=== PATIENT | male | born 1960 | race Caucasian/White ===

== ENCOUNTER 2016-04-20 18:24 | Inpatient (IN) | payer OTHER ==
[~2016-04-20] VITALS: Ht 180.3 cm; Wt 66.3 kg
[~2016-04-20 18:24] MED LIST: ADVAIR 250/501 DISK IH; Levaquin PO; NOHOMEMEDS; SPIRIVA1 INHALATI IH; Tessalon Perle PO; XARELTO15 MG PO; XARELTO20 MG PO
[2016-04-20 19:27] LABS: CHLORIDE 89 mEq/L (99-109); POTASSIUM 3.7 mEq/L (3.7-5.4); SODIUM 122 mEq/L (136-147)
[2016-04-20 19:29] LABS: GLUCOSE 89 mg/dL (70-99)
[2016-04-20 19:31] LABS: ANION GAP 19 MEQ/L (2-14)
[2016-04-20 19:33] LABS: GFR ESTIMATE (CALCULATED) 27 mL/min/
[2016-04-20 19:34] LABS: UREA NITROGEN (BUN) 23 mg/dL (9-23)
[2016-04-20 20:39] LABS: INFLUENZA A VIRAL ANTIGEN NEGATIVE; INFLUENZA B VIRAL ANTIGEN NEGATIVE
[2016-04-20 21:53] LABS: ADD MIUA? YES; BILIRUBIN NEGATIVE; BLOOD LARGE; COLOR DK YELLOW ((YELLOW)); GLUCOSE (STRIP) NEGATIVE; KETONES NEGATIVE; LEUKOCYTES LARGE; NITRITE NEGATIVE; PROTEIN (STRIP) >=300; SPECIFIC GRAVITY 1.015 (1.000-1.030); UROBILINOGEN 0.2 MG/DL (0.2-1.0)
[2016-04-20 22:00] LABS: HEMATOCRIT 31.2 % (38.0-50.0); MCH 31.4 PG (29.0-34.0); MCHC 35.6 G/DL (30.0-36.0); MCV 88.4 FL (86-99); MEAN PLAT.VOLUME 9.5 uM^3 (9.0-12.4); PLATELET COUNT 176 K/uL (156-360); RBC DIS.WIDTH-CV 13.7 % (11.8-14.6); RBC DIS.WIDTH-SD 42.7 % (39-53); RED BLOOD COUNT 3.53 M/uL (4.00-5.50); WHITE BLOOD COUNT 26.6 K/uL (4.1-10.2)
[2016-04-20] MEDS ORDERED: ADVIL,NUPRIN,M200 MG PO (22:30)
[2016-04-20 22:42] LABS: UCUL ADDED? YES; WHITE BLOOD CELLS TNTC /HPF (0-5)
[2016-04-20 22:50] LABS: ABS NEUTROPHIL COUNT 20.18; ANISOCYTOSIS 1+; BURR CELLS 1+; EOSINOPHIL (%) 0.6 % (0-5); EOSINOPHIL COUNT 0.2 K/uL (0-0.3); IMMATURE GRANULOCYTE (%) 11.7 % (0.0-0.7); IMMATURE GRANULOCYTE COUNT 31.1 K/uL; LYMPHOCYTE COUNT 0.6 K/uL (1.0-2.8); MONOCYTE COUNT 0.5 K/uL (0-0.8); NEUTROPHIL (%) 83.3 % (45-76); NEUTROPHIL COUNT 22.1 K/uL (1.8-6.4); PLAT.SUFFICIENCY ADEQUATE
[2016-04-21] VITALS (24 sets, daily range): BP systolic 79–128; BP diastolic 52–80
[2016-04-21 03:08] LABS: METH RESISTANT S AUREUS PCR NEGATIVE (NEGATIVE)
[2016-04-21 03:19] LABS: PROBE CHECK PASS; SPECIMEN PROCESSING CONTROL PASS
[2016-04-21 06:52] LABS: ANION GAP 19 MEQ/L (2-14); CHLORIDE 97 MEQ/L (99-109); GFR ESTIMATE (CALCULATED) 28 mL/min/; GLUCOSE 70 mg/dL (70-99); POTASSIUM 4.1 MEQ/L (3.7-5.4); SAMPLE HEMOLYSIS CHECK 0; SAMPLE ICTERIC CHECK 0; SAMPLE LIPEMIA CHECK 0; SODIUM 126 MEQ/L (136-147); UREA NITROGEN (BUN) 26 mg/dL (9-23)
[2016-04-21 13:20] LABS: ANION GAP 11 MEQ/L (2-14); CHLORIDE 101 MEQ/L (99-109); GFR ESTIMATE (CALCULATED) 30 mL/min/; GLUCOSE 64 mg/dL (70-99); SAMPLE HEMOLYSIS CHECK 0; SAMPLE ICTERIC CHECK 0; SAMPLE LIPEMIA CHECK 0; SODIUM 125 MEQ/L (136-147); UREA NITROGEN (BUN) 30 mg/dL (9-23)
[2016-04-21 13:33] LABS: POTASSIUM 5.4 MEQ/L (3.7-5.4)
[2016-04-21 20:10] LABS: GLUCOSE 67 mg/dL (70-99)
[2016-04-21 20:11] LABS: GFR ESTIMATE (CALCULATED) 30 mL/min/; UREA NITROGEN (BUN) 32 mg/dL (9-23)
[2016-04-21 20:12] LABS: CHLORIDE 104 MEQ/L (99-109); POTASSIUM 5.3 MEQ/L (3.7-5.4); SODIUM 131 MEQ/L (136-147)
[2016-04-21 20:13] LABS: ADD MIUA? YES; BILIRUBIN SMALL; BLOOD LARGE; COLOR DK YELLOW ((YELLOW)); GLUCOSE (STRIP) NEGATIVE; KETONES NEGATIVE; LEUKOCYTES LARGE; NITRITE NEGATIVE; PH, URINE 6.5 (5-8); PROTEIN (STRIP) 100; SPECIFIC GRAVITY 1.011 (1.000-1.030)
[2016-04-21 20:13] LABS: ANION GAP ND MEQ/L (2-14)
[2016-04-21 20:30] LABS: RED BLOOD CELLS TNTC /HPF (0-5)
[2016-04-21 20:31] LABS: AMORPHOUS URATES CRYSTALS 4+; BACTERIA 3+; CASTS NONE SEEN /LPF; CRYSTALS PRESENT; EPITHELIAL CELLS RARE; MUCUS NONE SEEN; UCUL ADDED? YES; WHITE BLOOD CELLS TNTC /HPF (0-5)
[2016-04-21 21:07] LABS: UR CREATININE CONCENTRATION 62.8 MG/DL
[2016-04-21 21:10] LABS: BASE EXCESS -5.9 mEq/L (-3 to +3); BICARBONATE 17.3 mEq/L (22-26); CARBOXY HGB 1.8 % (0-5); COMMENTS - BLOOD GASES A+C+; FI02 21 %; METHEMOGLOBIN 1.9 % (0-1.5); PCO2 26 mm Hg (35-45); PO2 65 mm Hg (80-100); SITE RR; pH 7.43 (7.35-7.45)
[2016-04-21 23:21] LABS: POTASSIUM 4.3 mEq/L (3.7-5.4); SODIUM 132 mEq/L (136-147)
[2016-04-21 23:22] LABS: GLUCOSE 49 mg/dL (70-99)
[2016-04-21 23:24] LABS: ANION GAP 14 MEQ/L (2-14); CHLORIDE 105 mEq/L (99-109)
[2016-04-21 23:26] LABS: GFR ESTIMATE (CALCULATED) 31 mL/min/
[2016-04-21 23:27] LABS: UREA NITROGEN (BUN) 35 mg/dL (9-23)
[2016-04-22] VITALS (10 sets, daily range): BP systolic 97–141; BP diastolic 59–82
[2016-04-22 05:46] LABS: HEMATOCRIT 28.1 % (38.0-50.0); MCH 30.9 PG (29.0-34.0); MCHC 35.2 G/DL (30.0-36.0); MCV 87.8 FL (86-99); RBC DIS.WIDTH-SD 45.2 % (39-53); WHITE BLOOD COUNT 19.4 K/uL (4.1-10.2)
[2016-04-22 06:21] LABS: ANION GAP 11 MEQ/L (2-14); CHLORIDE 105 MEQ/L (99-109); GFR ESTIMATE (CALCULATED) 31 mL/min/; GLUCOSE 68 mg/dL (70-99); MAGNESIUM 1.5 mg/dl (1.3-2.7); POTASSIUM 4.2 MEQ/L (3.7-5.4); SAMPLE HEMOLYSIS CHECK 0; SAMPLE ICTERIC CHECK 0; SAMPLE LIPEMIA CHECK 0; SODIUM 132 MEQ/L (136-147); UREA NITROGEN (BUN) 38 mg/dL (9-23)
[2016-04-22 06:45] LABS: EOSINOPHIL (%) 0.1 % (0-5); HEMATOLOGY COMMENT 1 SMEAR COMPATIBLE; IMMATURE GRANULOCYTE (%) 2.8 % (0.0-0.7); IMMATURE GRANULOCYTE COUNT 0.6 K/uL; LYMPHOCYTE COUNT 1.7 K/uL (1.0-2.8); MONOCYTE (%) 3.8 % (3-12); MONOCYTE COUNT 0.7 K/uL (0-0.8); NEUTROPHIL (%) 84.2 % (45-76); NEUTROPHIL COUNT 16.3 K/uL (1.8-6.4); PLAT.SUFFICIENCY DECREASED
[2016-04-22 06:52] LABS: PLATELET COUNT UNABLE TO REPORT K/uL (156-360)
[2016-04-23 00:10] VITALS: BP 125/72
[2016-04-23 04:10] VITALS: BP 107/74
[2016-04-23 06:04] LABS: HEMATOCRIT 27.5 % (38.0-50.0); MCHC 35.3 G/DL (30.0-36.0); MCV 87.9 FL (86-99); RBC DIS.WIDTH-CV 14.3 % (11.8-14.6); RBC DIS.WIDTH-SD 46.2 % (39-53); RED BLOOD COUNT 3.13 M/uL (4.00-5.50); WHITE BLOOD COUNT 14.9 K/uL (4.1-10.2)
[2016-04-23 06:32] LABS: ANION GAP 9 MEQ/L (2-14); CHLORIDE 106 MEQ/L (99-109); GFR ESTIMATE (CALCULATED) 39 mL/min/; POTASSIUM 4.1 MEQ/L (3.7-5.4); SAMPLE HEMOLYSIS CHECK 0; SAMPLE ICTERIC CHECK 0; SAMPLE LIPEMIA CHECK 0; SODIUM 133 MEQ/L (136-147); UREA NITROGEN (BUN) 34 mg/dL (9-23)
[2016-04-23 06:36] LABS: GLUCOSE 114 mg/dL (70-99); MAGNESIUM 2.1 mg/dl (1.3-2.7)
[2016-04-23 06:50] LABS: EOSINOPHIL (%) 0.9 % (0-5); EOSINOPHIL COUNT 0.1 K/uL (0-0.3); IMMATURE GRANULOCYTE (%) 0.7 % (0.0-0.7); IMMATURE GRANULOCYTE COUNT 0.1 K/uL; LYMPHOCYTE COUNT 1.7 K/uL (1.0-2.8); MONOCYTE COUNT 0.8 K/uL (0-0.8); NEUTROPHIL (%) 81.7 % (45-76); NEUTROPHIL COUNT 12.2 K/uL (1.8-6.4)
[2016-04-23 07:36] LABS: PLAT.SUFFICIENCY DECREASED; PLATELET COUNT UNABLE TO REPORT K/uL (156-360)
[2016-04-23 08:00] VITALS: BP 121/83
[2016-04-23 10:20] VITALS: BP 128/83
[2016-04-23 10:58] LABS: C DIFF TOXIN NEGATIVE (NEGATIVE)
[2016-04-23 11:07] LABS: PROBE CHECK PASS; SPECIMEN PROCESSING CONTROL PASS
[2016-04-23 12:00] VITALS: BP 123/79
[2016-04-23 20:00] VITALS: BP 130/82
[2016-04-24] VITALS (7 sets, daily range): BP systolic 127–160; BP diastolic 80–88
[2016-04-24 05:52] LABS: HEMATOCRIT 28.5 % (38.0-50.0); MCH 30.7 PG (29.0-34.0); MCHC 34.7 G/DL (30.0-36.0); MCV 88.2 FL (86-99); RBC DIS.WIDTH-CV 14.3 % (11.8-14.6); RBC DIS.WIDTH-SD 46.5 % (39-53); RED BLOOD COUNT 3.23 M/uL (4.00-5.50); WHITE BLOOD COUNT 12.4 K/uL (4.1-10.2)
[2016-04-24 06:07] LABS: CHLORIDE 103 MEQ/L (99-109); GFR ESTIMATE (CALCULATED) > 59 mL/min/; GLUCOSE 98 mg/dL (70-99); POTASSIUM 3.7 MEQ/L (3.7-5.4); SODIUM 135 MEQ/L (136-147); UREA NITROGEN (BUN) 23 mg/dL (9-23)
[2016-04-24 06:16] LABS: ANION GAP 12 MEQ/L (2-14); MAGNESIUM 1.8 mg/dl (1.3-2.7); SAMPLE HEMOLYSIS CHECK 0; SAMPLE ICTERIC CHECK 0; SAMPLE LIPEMIA CHECK 0
[2016-04-24 07:10] LABS: EOSINOPHIL (%) 1.2 % (0-5); EOSINOPHIL COUNT 0.2 K/uL (0-0.3); IMMATURE GRANULOCYTE (%) 1.1 % (0.0-0.7); IMMATURE GRANULOCYTE COUNT 0.1 K/uL; MONOCYTE (%) 13.1 % (3-12); MONOCYTE COUNT 1.6 K/uL (0-0.8); NEUTROPHIL (%) 67.9 % (45-76); NEUTROPHIL COUNT 8.4 K/uL (1.8-6.4)
[2016-04-24 07:17] LABS: MEAN PLAT.VOLUME 11.2 uM^3 (9.0-12.4); PLAT.SUFFICIENCY DECREASED; USER ID CL
[2016-04-24 07:43] LABS: PLATELET COUNT 47 K/uL (156-360)
[2016-04-25] VITALS: BP 150/82
[2016-04-25 06:00] LABS: HEMATOCRIT 31.5 % (38.0-50.0); MCH 30.3 PG (29.0-34.0); MCHC 34.3 G/DL (30.0-36.0); MCV 88.5 FL (86-99); RBC DIS.WIDTH-CV 14.6 % (11.8-14.6); RBC DIS.WIDTH-SD 47.4 % (39-53); RED BLOOD COUNT 3.56 M/uL (4.00-5.50); WHITE BLOOD COUNT 10.3 K/uL (4.1-10.2)
[2016-04-25 06:16] LABS: EOSINOPHIL (%) 1.3 % (0-5); EOSINOPHIL COUNT 0.1 K/uL (0-0.3); IMMATURE GRANULOCYTE (%) 4.4 % (0.0-0.7); IMMATURE GRANULOCYTE COUNT 0.5 K/uL; LYMPHOCYTE COUNT 1.9 K/uL (1.0-2.8); MEAN PLAT.VOLUME 11.2 uM^3 (9.0-12.4); MONOCYTE (%) 16.2 % (3-12); MONOCYTE COUNT 1.7 K/uL (0-0.8); NEUTROPHIL (%) 59.7 % (45-76); NEUTROPHIL COUNT 6.2 K/uL (1.8-6.4)
[2016-04-25 06:18] LABS: PLATELET COUNT 64 K/uL (156-360)
[2016-04-25 06:31] LABS: ANION GAP 11 MEQ/L (2-14); CHLORIDE 107 MEQ/L (99-109); GFR ESTIMATE (CALCULATED) > 59 mL/min/; GLUCOSE 76 mg/dL (70-99); MAGNESIUM 1.7 mg/dl (1.3-2.7); POTASSIUM 3.4 MEQ/L (3.7-5.4); SAMPLE HEMOLYSIS CHECK 0; SAMPLE ICTERIC CHECK 0; SAMPLE LIPEMIA CHECK 0; SODIUM 138 MEQ/L (136-147); UREA NITROGEN (BUN) 16 mg/dL (9-23)
[2016-04-25 08:00] VITALS: BP 144/79
[2016-04-25 08:15] LABS: HEMATOLOGY COMMENT 1 SMEAR COMPATIBLE
[2016-04-25 12:00] VITALS: BP 165/83
[2016-04-25 16:00] VITALS: BP 157/82
[2016-04-25 20:36] VITALS: BP 139/72
[2016-04-25 23:15] VITALS: BP 135/76
[2016-04-26 06:57] LABS: HEMATOCRIT 30.4 % (38.0-50.0); MCH 30.6 PG (29.0-34.0); MCHC 35.2 G/DL (30.0-36.0); MCV 86.9 FL (86-99); RBC DIS.WIDTH-CV 14.5 % (11.8-14.6); RBC DIS.WIDTH-SD 45.2 % (39-53); WHITE BLOOD COUNT 9.1 K/uL (4.1-10.2)
[2016-04-26 07:20] LABS: ANION GAP 6 MEQ/L (2-14); CHLORIDE 104 MEQ/L (99-109); GFR ESTIMATE (CALCULATED) > 59 mL/min/; MAGNESIUM 1.6 mg/dl (1.3-2.7); POTASSIUM 3.3 MEQ/L (3.7-5.4); SAMPLE HEMOLYSIS CHECK 0; SAMPLE ICTERIC CHECK 0; SAMPLE LIPEMIA CHECK 0; SODIUM 136 MEQ/L (136-147); UREA NITROGEN (BUN) 13 mg/dL (9-23)
[2016-04-26 07:22] LABS: GLUCOSE 96 mg/dL (70-99)
[2016-04-26 07:31] LABS: EOSINOPHIL (%) 1.4 % (0-5); EOSINOPHIL COUNT 0.1 K/uL (0-0.3); IMMATURE GRANULOCYTE (%) 3.8 % (0.0-0.7); IMMATURE GRANULOCYTE COUNT 0.3 K/uL; LYMPHOCYTE COUNT 1.8 K/uL (1.0-2.8); MEAN PLAT.VOLUME 10.9 uM^3 (9.0-12.4); MONOCYTE (%) 14.5 % (3-12); MONOCYTE COUNT 1.3 K/uL (0-0.8); NEUTROPHIL (%) 60.1 % (45-76); NEUTROPHIL COUNT 5.5 K/uL (1.8-6.4); PLATELET COUNT 100 K/uL (156-360)
[2016-04-26 08:00] VITALS: BP 130/80
[2016-04-26 08:01] LABS: HEMATOLOGY COMMENT 1 REV; USER ID NJR
[2016-04-26 18:49] VITALS: BP 173/75
[2016-04-26 22:49] VITALS: BP 130/60
[2016-04-27 06:57] LABS: EOSINOPHIL (%) 1.1 % (0-5); EOSINOPHIL COUNT 0.1 K/uL (0-0.3); HEMATOCRIT 30.4 % (38.0-50.0); IMMATURE GRANULOCYTE (%) 1.1 % (0.0-0.7); IMMATURE GRANULOCYTE COUNT 0.1 K/uL; LYMPHOCYTE COUNT 2.3 K/uL (1.0-2.8); MCH 29.5 PG (29.0-34.0); MCHC 34.2 G/DL (30.0-36.0); MCV 86.4 FL (86-99); MEAN PLAT.VOLUME 10.5 uM^3 (9.0-12.4); MONOCYTE (%) 11.3 % (3-12); MONOCYTE COUNT 0.9 K/uL (0-0.8); NEUTROPHIL (%) 57.9 % (45-76); NEUTROPHIL COUNT 4.7 K/uL (1.8-6.4); PLATELET COUNT 124 K/uL (156-360); RBC DIS.WIDTH-CV 14.8 % (11.8-14.6); RBC DIS.WIDTH-SD 45.8 % (39-53); RED BLOOD COUNT 3.52 M/uL (4.00-5.50); WHITE BLOOD COUNT 8.1 K/uL (4.1-10.2)
[2016-04-27 07:34] LABS: ANION GAP 7 MEQ/L (2-14); CHLORIDE 103 MEQ/L (99-109); GFR ESTIMATE (CALCULATED) > 59 mL/min/; GLUCOSE 100 mg/dL (70-99); MAGNESIUM 1.4 mg/dl (1.3-2.7); POTASSIUM 3.1 MEQ/L (3.7-5.4); SAMPLE HEMOLYSIS CHECK 0; SAMPLE ICTERIC CHECK 0; SAMPLE LIPEMIA CHECK 0; SODIUM 135 MEQ/L (136-147); UREA NITROGEN (BUN) 10 mg/dL (9-23)
[2016-04-27 08:12] VITALS: BP 123/62
[2016-04-27 22:44] VITALS: BP 113/69
[2016-04-28 06:35] LABS: EOSINOPHIL (%) 0 % (0-5); HEMATOCRIT 25.1 % (38.0-50.0); IMMATURE GRANULOCYTE (%) 0.3 % (0.0-0.7); LYMPHOCYTE COUNT 1.3 K/uL (1.0-2.8); MCH 30.4 PG (29.0-34.0); MCHC 35.1 G/DL (30.0-36.0); MCV 86.9 FL (86-99); MEAN PLAT.VOLUME 10.4 uM^3 (9.0-12.4); MONOCYTE (%) 5.4 % (3-12); MONOCYTE COUNT 0.5 K/uL (0-0.8); NEUTROPHIL (%) 79.6 % (45-76); PLATELET COUNT 142 K/uL (156-360); RBC DIS.WIDTH-CV 14.6 % (11.8-14.6); RBC DIS.WIDTH-SD 45.9 % (39-53); RED BLOOD COUNT 2.89 M/uL (4.00-5.50); WHITE BLOOD COUNT 8.8 K/uL (4.1-10.2)
[2016-04-28 07:46] VITALS: BP 116/64
[2016-04-28 08:03] LABS: ANION GAP 5 MEQ/L (2-14); CHLORIDE 105 MEQ/L (99-109); GFR ESTIMATE (CALCULATED) > 59 mL/min/; GLUCOSE 133 mg/dL (70-99); MAGNESIUM 1.5 mg/dl (1.3-2.7); SAMPLE HEMOLYSIS CHECK 0; SAMPLE ICTERIC CHECK 0; SAMPLE LIPEMIA CHECK 0; SODIUM 136 MEQ/L (136-147); UREA NITROGEN (BUN) 13 mg/dL (9-23)
[2016-04-28 08:04] LABS: POTASSIUM 4.4 MEQ/L (3.7-5.4)
[2016-04-28 15:26] VITALS: BP 126/66
[2016-04-28 22:36] VITALS: BP 116/60
[2016-04-29 05:51] LABS: EOSINOPHIL (%) 0.1 % (0-5); IMMATURE GRANULOCYTE (%) 0.4 % (0.0-0.7); LYMPHOCYTE COUNT 2.4 K/uL (1.0-2.8); MCH 30.4 PG (29.0-34.0); MCHC 34.3 G/DL (30.0-36.0); MCV 88.5 FL (86-99); MEAN PLAT.VOLUME 10.4 uM^3 (9.0-12.4); MONOCYTE (%) 7.5 % (3-12); MONOCYTE COUNT 0.7 K/uL (0-0.8); NEUTROPHIL (%) 65.6 % (45-76); PLATELET COUNT 181 K/uL (156-360); RBC DIS.WIDTH-CV 15.3 % (11.8-14.6); WHITE BLOOD COUNT 9.1 K/uL (4.1-10.2)
[2016-04-29 06:06] LABS: INTER. NORMALIZED RATIO 1.1; PROTHROMBIN TIME 11.4 (9.2-11.2); PTT 33.4 (25-32)
[2016-04-29 06:20] LABS: ANION GAP 6 MEQ/L (2-14); CHLORIDE 104 MEQ/L (99-109); GFR ESTIMATE (CALCULATED) > 59 mL/min/; MAGNESIUM 1.4 mg/dl (1.3-2.7); POTASSIUM 4.7 MEQ/L (3.7-5.4); SAMPLE HEMOLYSIS CHECK 0; SAMPLE ICTERIC CHECK 0; SAMPLE LIPEMIA CHECK 0; SODIUM 135 MEQ/L (136-147); UREA NITROGEN (BUN) 12 mg/dL (9-23)
[2016-04-29 06:23] LABS: GLUCOSE 75 mg/dL (70-99)
[2016-04-29 07:57] VITALS: BP 106/59
[2016-04-29 17:08] VITALS: BP 148/68
[2016-04-29 22:38] VITALS: BP 146/72
[2016-04-30 06:24] LABS: HEMATOCRIT 22.8 % (38.0-50.0); MCH 30.6 PG (29.0-34.0); MCHC 34.6 G/DL (30.0-36.0); MCV 88.4 FL (86-99); MEAN PLAT.VOLUME 10.1 uM^3 (9.0-12.4); PLATELET COUNT 216 K/uL (156-360); RBC DIS.WIDTH-CV 15.2 % (11.8-14.6); RBC DIS.WIDTH-SD 48.9 % (39-53); RED BLOOD COUNT 2.58 M/uL (4.00-5.50); WHITE BLOOD COUNT 9.2 K/uL (4.1-10.2)
[2016-04-30 06:35] LABS: EOSINOPHIL (%) 0.4 % (0-5); IMMATURE GRANULOCYTE (%) 0.2 % (0.0-0.7); LYMPHOCYTE COUNT 2.3 K/uL (1.0-2.8); MONOCYTE (%) 9.6 % (3-12); MONOCYTE COUNT 0.9 K/uL (0-0.8); NEUTROPHIL (%) 64.8 % (45-76); NEUTROPHIL COUNT 5.9 K/uL (1.8-6.4)
[2016-04-30 06:53] LABS: ANION GAP 5 MEQ/L (2-14); CHLORIDE 103 MEQ/L (99-109); GFR ESTIMATE (CALCULATED) > 59 mL/min/; GLUCOSE 79 mg/dL (70-99); MAGNESIUM 1.5 mg/dl (1.3-2.7); POTASSIUM 4.2 MEQ/L (3.7-5.4); PREALBUMIN 6.4 mg/dL (10-40); SAMPLE HEMOLYSIS CHECK 0; SAMPLE ICTERIC CHECK 0; SAMPLE LIPEMIA CHECK 0; SODIUM 133 MEQ/L (136-147); UREA NITROGEN (BUN) 10 mg/dL (9-23)
[2016-04-30 08:07] LABS: HEMATOLOGY COMMENT 1 SMEAR COMPATIBLE; USER ID LYM
[2016-04-30 08:42] VITALS: BP 120/88
[2016-04-30 17:37] VITALS: BP 134/72
[2016-04-30 21:00] VITALS: BP 115/74
[2016-04-30 22:13] VITALS: BP 113/58
[2016-05-01 06:16] LABS: EOSINOPHIL (%) 1.1 % (0-5); EOSINOPHIL COUNT 0.1 K/uL (0-0.3); HEMATOCRIT 23.7 % (38.0-50.0); IMMATURE GRANULOCYTE (%) 0.2 % (0.0-0.7); LYMPHOCYTE COUNT 2.4 K/uL (1.0-2.8); MCHC 33.8 G/DL (30.0-36.0); MCV 88.8 FL (86-99); MEAN PLAT.VOLUME 9.6 uM^3 (9.0-12.4); MONOCYTE (%) 8.3 % (3-12); MONOCYTE COUNT 0.7 K/uL (0-0.8); NEUTROPHIL (%) 61.6 % (45-76); NEUTROPHIL COUNT 5.1 K/uL (1.8-6.4); PLATELET COUNT 249 K/uL (156-360); RBC DIS.WIDTH-CV 15.1 % (11.8-14.6); RBC DIS.WIDTH-SD 48.7 % (39-53); RED BLOOD COUNT 2.67 M/uL (4.00-5.50); WHITE BLOOD COUNT 8.3 K/uL (4.1-10.2)
[2016-05-01 06:40] LABS: ALKALINE PHOSPHATASE 76 IU/L (3-129); ANION GAP 5 MEQ/L (2-14); CHLORIDE 105 MEQ/L (99-109); GFR ESTIMATE (CALCULATED) > 59 mL/min/; GLUCOSE 88 mg/dL (70-99); IRON 28 MCG/DL (35-150); MAGNESIUM 1.6 mg/dl (1.3-2.7); POTASSIUM 4.9 MEQ/L (3.7-5.4); SAMPLE HEMOLYSIS CHECK 0; SAMPLE ICTERIC CHECK 0; SAMPLE LIPEMIA CHECK 0; SODIUM 135 MEQ/L (136-147); TOTAL BILIRUBIN 0.8 MG/DL (0.0-1.0); UREA NITROGEN (BUN) 12 mg/dL (9-23)
[2016-05-01 07:54] VITALS: BP 130/72
[2016-05-01 16:17] VITALS: BP 135/68
[2016-05-01 23:15] VITALS: BP 132/73
[2016-05-02] VITALS (8 sets, daily range): BP systolic 116–152; BP diastolic 57–78
[2016-05-02 06:49] LABS: EOSINOPHIL (%) 1.6 % (0-5); EOSINOPHIL COUNT 0.1 K/uL (0-0.3); IMMATURE GRANULOCYTE (%) 0.5 % (0.0-0.7); LYMPHOCYTE COUNT 2.5 K/uL (1.0-2.8); MCH 30.2 PG (29.0-34.0); MCHC 33.7 G/DL (30.0-36.0); MCV 89.7 FL (86-99); MONOCYTE (%) 11.6 % (3-12); NEUTROPHIL (%) 55.9 % (45-76); NEUTROPHIL COUNT 4.7 K/uL (1.8-6.4); RBC DIS.WIDTH-CV 15.4 % (11.8-14.6); RED BLOOD COUNT 3.01 M/uL (4.00-5.50); WHITE BLOOD COUNT 8.3 K/uL (4.1-10.2)
[2016-05-02 07:18] LABS: ANION GAP 8 MEQ/L (2-14); CHLORIDE 101 MEQ/L (99-109); GFR ESTIMATE (CALCULATED) > 59 mL/min/; GLUCOSE 75 mg/dL (70-99); MAGNESIUM 1.7 mg/dl (1.3-2.7); POTASSIUM 5.1 MEQ/L (3.7-5.4); SAMPLE HEMOLYSIS CHECK 0; SAMPLE ICTERIC CHECK 0; SAMPLE LIPEMIA CHECK 0; SODIUM 133 MEQ/L (136-147); UREA NITROGEN (BUN) 12 mg/dL (9-23)
[2016-05-02 07:30] LABS: MEAN PLAT.VOLUME 9.9 uM^3 (9.0-12.4)
[2016-05-02 07:49] LABS: PLATELET COUNT 384 K/uL (156-360)
[2016-05-02 09:49] LABS: POC NON-PRINT COM 1 ND
[2016-05-02 13:06] LABS: TYPE OF FLUID PLEURAL
[2016-05-02 14:00] LABS: BODY FLUID RBC'S 9250 /MM^3 (0-100); BODY FLUID WBC'S 167 /MM^3 (0-500); RED CELL AREA COUNTED 0.4; RED CELL DILUTION 2; WBC DILUTION 2; WHITE CELL RAW COUNT 150
[2016-05-02 14:32] LABS: BODY FLUID EOSINOPHILS 0 % (0-25); MONO RAW COUNT 80; MONONUCLEAR WBC'S 80 %; POLY RAW COUNT 20; POLYNUCLEAR WBC'S 20 % (0-25)
[2016-05-02 15:19] LABS: BODY FLUID LDH 92 IU/L; BODY FLUID PROTEIN < 3.0 G/DL
[2016-05-03 06:51] LABS: EOSINOPHIL (%) 1.9 % (0-5); EOSINOPHIL COUNT 0.2 K/uL (0-0.3); HEMATOCRIT 30.2 % (38.0-50.0); IMMATURE GRANULOCYTE (%) 0.5 % (0.0-0.7); LYMPHOCYTE COUNT 2.7 K/uL (1.0-2.8); MCH 29.4 PG (29.0-34.0); MCHC 33.4 G/DL (30.0-36.0); MEAN PLAT.VOLUME 9.4 uM^3 (9.0-12.4); MONOCYTE COUNT 0.8 K/uL (0-0.8); NEUTROPHIL (%) 54.4 % (45-76); NEUTROPHIL COUNT 4.5 K/uL (1.8-6.4); PLATELET COUNT 426 K/uL (156-360); RBC DIS.WIDTH-CV 15.6 % (11.8-14.6); RBC DIS.WIDTH-SD 50.3 % (39-53); RED BLOOD COUNT 3.43 M/uL (4.00-5.50); WHITE BLOOD COUNT 8.3 K/uL (4.1-10.2)
[2016-05-03 07:00] VITALS: BP 136/68
[2016-05-03 07:13] LABS: ANION GAP 8 MEQ/L (2-14); CHLORIDE 104 MEQ/L (99-109); GFR ESTIMATE (CALCULATED) > 59 mL/min/; GLUCOSE 81 mg/dL (70-99); MAGNESIUM 1.8 mg/dl (1.3-2.7); SAMPLE HEMOLYSIS CHECK 0; SAMPLE ICTERIC CHECK 0; SAMPLE LIPEMIA CHECK 0; SODIUM 135 MEQ/L (136-147); UREA NITROGEN (BUN) 14 mg/dL (9-23)
[2016-05-03 16:22] VITALS: BP 120/65
[2016-05-03] MEDS ORDERED: BENADRYL25 MG PO (16:53)
[2016-05-03] MEDS ORDERED: INVANZ1 GM IM (16:53)
[2016-05-03] MEDS ORDERED: VALSARTAN160 MG PO (16:54)
[2016-05-03] MEDS ORDERED: NIFEREX-150,FE150 MG PO (16:54)
[2016-05-03] MEDS ORDERED: TYLENOL REGULA325 MG PO (16:55)
[2016-05-03] MEDS ORDERED: ONDANSETRON ODT4 MG PO (16:56)
[2016-05-03] MEDS ORDERED: Tums,OsCal PO (16:56)
[2016-05-03] MEDS ORDERED: ENDOCET 5-3251 EACH PO (16:57)
[2016-05-03] MEDS ORDERED: ZOLPIDEM TARTRAT5 MG PO (16:57)
[2016-05-04 00:46] LABS: BODY FLUID PH 8.1 (())
== END 2016-05-03 18:27 | disposition home health service (06) | DRG 871 ==
LOC: EME 18:24 → EDOF 04-21 00:03 → 4WEST 04-21 00:03 → EDOF 04-21 00:03 → 4WEST 04-21 01:28 → 5EAST 04-25 18:27
PROVIDERS: Emergency Medicine; Family Medicine Sports Medicine; Internal Medicine Critical Care Medicine; Internal Medicine Nephrology; Radiology Diagnostic Radiology; Surgery
PROC: 05HM33Z Insertion of Infusion Device into Right Internal Jugular Vein, Percutaneous Approach (ICD-10-PCS; principal; 2016-04-20)
PROC: 8E0ZXY6 Isolation (ICD-10-PCS; 2016-04-23)
PROC: 30233N1 Transfusion of Nonautologous Red Blood Cells into Peripheral Vein, Percutaneous Approach (ICD-10-PCS; 2016-05-02)
DX: A41.51 Sepsis due to Escherichia coli [E. coli] (principal); R65.21 Severe sepsis with septic shock; J15.0 Pneumonia due to Klebsiella pneumoniae; N17.9 Acute kidney failure, unspecified; E87.1 Hypo-osmolality and hyponatremia; N39.0 Urinary tract infection, site not specified; K12.2 Cellulitis and abscess of mouth; E87.2 Acidosis; K02.9 Dental caries, unspecified; B96.89 Other specified bacterial agents as the cause of diseases classified elsewhere; J43.9 Emphysema, unspecified; I27.2 Other secondary pulmonary hypertension; F17.210 Nicotine dependence, cigarettes, uncomplicated; H61.23 Impacted cerumen, bilateral; L98.8 Other specified disorders of the skin and subcutaneous tissue; F10.10 Alcohol abuse, uncomplicated; E87.8 Other disorders of electrolyte and fluid balance, not elsewhere classified; M27.2 Inflammatory conditions of jaws; E83.42 Hypomagnesemia; K21.9 Gastro-esophageal reflux disease without esophagitis; R00.0 Tachycardia, unspecified; Z86.711 Personal history of pulmonary embolism; Z68.20 Body mass index [BMI] 20.0-20.9, adult; Z16.12 Extended spectrum beta lactamase (ESBL) resistance; E86.0 Dehydration; B96.20 Unspecified Escherichia coli [E. coli] as the cause of diseases classified elsewhere; B96.1 Klebsiella pneumoniae [K. pneumoniae] as the cause of diseases classified elsewhere; Z23 Encounter for immunization
CPT/HCPCS: 36600; 71010; 71020; 74176; 74420; 80048; 80048 91; 80053; 81003; 82040; 82140; 82272; 82570; 82607; 82746; 82803; 82945; 83540; 83605; 83615 91; 83735; 83930; 83935; 83986 90; 84100; 84134; 84156; 84157; 84300; 84466; 85025; 85027; 85610; 85730; 86850; 86900; 86901; 86920; 87040; 87070; 87075; 87077; 87086; 87106; 87116; 87186; 87205; 87206; 87493; 87502; 87641; 87801; 88108; 88305; 89051; 93005; 94640; 94799; 97530 GO; 99281; 99285; C1758; C1876; C9113; J0456; J1335; J1644; J1885; J2185; J2250; J2405; J2543; J3010; J3370; J3475; J3480; J7030; J7050; J7120; P9016; P9045

== ENCOUNTER 2016-09-27 11:24 | Inpatient (IN) | payer OTHER ==
[~2016-09-27] VITALS: Ht 180.3 cm; Wt 65.1 kg
[~2016-09-27 11:24] MED LIST changes: +ADVIL,NUPRIN,M200 MG PO; +BENADRYL25 MG PO; +ENDOCET 5-3251 EACH PO; +INVANZ1 GM IM; +NIFEREX-150,FE150 MG PO; +ONDANSETRON ODT4 MG PO; +TYLENOL REGULA325 MG PO; +Tums,OsCal PO; +VALSARTAN160 MG PO; +ZOLPIDEM TARTRAT5 MG PO
[2016-09-27 12:07] LABS: HEMATOCRIT 39.5 % (38.0-50.0); MCH 31.6 PG (29.0-34.0); MCHC 34.4 G/DL (30.0-36.0); MCV 91.9 FL (86-99); MEAN PLAT.VOLUME 8.2 uM^3 (9.0-12.4); PLATELET COUNT 556 K/uL (156-360); RBC DIS.WIDTH-CV 13.4 % (11.8-14.6); RBC DIS.WIDTH-SD 45.4 % (39-53); WHITE BLOOD COUNT 16.9 K/uL (4.1-10.2)
[2016-09-27 12:17] LABS: CHLORIDE 96 mEq/L (99-109); POTASSIUM 4.8 mEq/L (3.7-5.4); SODIUM 128 mEq/L (136-147)
[2016-09-27 12:18] LABS: D-DIMER ELISA 2.41 mg/L FEU (< 0.57); GLUCOSE 112 mg/dL (70-99)
[2016-09-27 12:20] LABS: ANION GAP 12 MEQ/L (2-14)
[2016-09-27 12:22] LABS: GFR ESTIMATE (CALCULATED) > 59 mL/min/
[2016-09-27 12:23] LABS: UREA NITROGEN (BUN) 5 mg/dL (9-23)
[2016-09-27 12:30] LABS: TROP-I INTERPRETATION NEGATIVE; TROPONIN-I < 0.01 ng/mL (0.0-0.30)
[2016-09-27 14:27] LABS: LIPASE 501 U/L (1.0-51.0)
[2016-09-27] MEDS ORDERED: VALSARTAN160 MG PO (16:19)
[2016-09-27 17:04] LABS: SERUM ETHYL ALCOHOL < 10 mg/dL
[2016-09-27 20:54] VITALS: BP 128/60
[2016-09-27 23:53] VITALS: BP 131/63
[2016-09-28 03:49] VITALS: BP 115/65
[2016-09-28 07:15] VITALS: BP 120/66
[2016-09-28 07:35] LABS: ANION GAP 8 MEQ/L (2-14); C-REACTIVE PROTEIN 117.7 MG/L (0-10); CHLORIDE 104 MEQ/L (99-109); GFR ESTIMATE (CALCULATED) > 59 mL/min/; POTASSIUM 4.7 MEQ/L (3.7-5.4); SAMPLE HEMOLYSIS CHECK 0; SAMPLE ICTERIC CHECK 0; SAMPLE LIPEMIA CHECK 0; SODIUM 130 MEQ/L (136-147); UREA NITROGEN (BUN) 6 mg/dL (9-23)
[2016-09-28 07:36] LABS: BASOPHIL COUNT 0.1 K/uL (0-0.1); EOSINOPHIL (%) 3.9 % (0-5); EOSINOPHIL COUNT 0.4 K/uL (0-0.3); HEMATOCRIT 31.7 % (38.0-50.0); IMMATURE GRANULOCYTE (%) 0.8 % (0.0-0.7); IMMATURE GRANULOCYTE COUNT 0.1 K/uL; INSTRUMENT ABS NEUTROPHIL CT 7.3 K/uL; LYMPHOCYTE COUNT 2.1 K/uL (1.0-2.8); MCH 31.5 PG (29.0-34.0); MCHC 33.4 G/DL (30.0-36.0); MCV 94.3 FL (86-99); MEAN PLAT.VOLUME 8.8 uM^3 (9.0-12.4); MONOCYTE (%) 8.6 % (3-12); MONOCYTE COUNT 0.9 K/uL (0-0.8); NEUTROPHIL COUNT 7.3 K/uL (1.8-6.4); PLATELET COUNT 401 K/uL (156-360); RBC DIS.WIDTH-CV 13.6 % (11.8-14.6); RBC DIS.WIDTH-SD 47.4 % (39-53)
[2016-09-28 07:40] LABS: GLUCOSE 77 mg/dL (70-99)
[2016-09-28 07:43] LABS: RED BLOOD COUNT 3.36 M/uL (4.00-5.50)
[2016-09-28 08:27] LABS: LIPASE 244 U/L (1.0-51.0)
[2016-09-28 10:46] LABS: ERTH.SED.RATE 28 MM/HR (0-20)
[2016-09-28 12:18] VITALS: BP 123/78
[2016-09-28 15:54] VITALS: BP 137/70
[2016-09-28 19:33] VITALS: BP 104/59
[2016-09-28 23:18] VITALS: BP 120/60
[2016-09-29] VITALS (11 sets, daily range): BP systolic 124–152; BP diastolic 57–85
[2016-09-29 06:40] LABS: EOSINOPHIL (%) 0 % (0-5); IMMATURE GRANULOCYTE (%) 0.7 % (0.0-0.7); IMMATURE GRANULOCYTE COUNT 0.1 K/uL; INSTRUMENT ABS NEUTROPHIL CT 8.9 K/uL; LYMPHOCYTE COUNT 0.7 K/uL (1.0-2.8); MCH 31.7 PG (29.0-34.0); MCHC 33.9 G/DL (30.0-36.0); MCV 93.7 FL (86-99); MEAN PLAT.VOLUME 8.7 uM^3 (9.0-12.4); MONOCYTE (%) 1.1 % (3-12); MONOCYTE COUNT 0.1 K/uL (0-0.8); NEUTROPHIL (%) 91.4 % (45-76); NEUTROPHIL COUNT 8.9 K/uL (1.8-6.4); PLATELET COUNT 403 K/uL (156-360); RBC DIS.WIDTH-CV 13.2 % (11.8-14.6); RBC DIS.WIDTH-SD 45.6 % (39-53); RED BLOOD COUNT 3.31 M/uL (4.00-5.50); WHITE BLOOD COUNT 9.8 K/uL (4.1-10.2)
[2016-09-29 06:56] LABS: INTER. NORMALIZED RATIO 1.1; PROTHROMBIN TIME 10.9 (9.2-11.2); PTT 29.3 (25-32)
[2016-09-29 07:16] LABS: AMYLASE 351 IU/L (1-118); ANION GAP 8 MEQ/L (2-14); CHLORIDE 101 MEQ/L (99-109); GFR ESTIMATE (CALCULATED) > 59 mL/min/; GLUCOSE 253 mg/dL (70-99); HDL CHOLESTEROL 15 MG/DL (Desirable>=40); LDL CHOLESTEROL 50 mg/dL (Desirable<100); LIPASE 485 U/L (1.0-51.0); NON-HDL CHOLESTEROL 63 mg/dL (Desirable<160); POTASSIUM 3.9 MEQ/L (3.7-5.4); SAMPLE HEMOLYSIS CHECK 1; SAMPLE ICTERIC CHECK 0; SAMPLE LIPEMIA CHECK 0; SODIUM 130 MEQ/L (136-147); TOTAL CHOLESTEROL 78 mg/dL (Desirable<200); TRIGLYCERIDES 65 MG/DL (Normal: <150); UREA NITROGEN (BUN) 5 mg/dL (9-23)
[2016-09-29 10:11] LABS: TYPE OF FLUID PLEURAL
[2016-09-29 10:37] LABS: BODY FLUID LDH 731 IU/L
[2016-09-29 11:03] LABS: BODY FLUID EOSINOPHILS 13 % (0-25); BODY FLUID RBC'S 199000 /MM^3 (0-100); BODY FLUID WBC'S 3416 /MM^3 (0-500); MONONUCLEAR WBC'S 9 %; POLYNUCLEAR WBC'S 78 % (0-25)
[2016-09-29 12:07] LABS: POINT-OF-CARE METER ID UU14174212
[2016-09-29 13:11] LABS: POINT-OF-CARE METER ID UU13113819
[2016-09-29 16:39] LABS: POINT-OF-CARE USER ID PUTDRM
[2016-09-30 01:05] VITALS: BP 113/74
[2016-09-30 01:21] VITALS: BP 140/66
[2016-09-30 03:44] VITALS: BP 131/71
[2016-09-30 06:20] LABS: POINT-OF-CARE METER ID UU14162508
[2016-09-30 06:46] LABS: EOSINOPHIL (%) 0 % (0-5); HEMATOCRIT 31.8 % (38.0-50.0); IMMATURE GRANULOCYTE (%) 1.4 % (0.0-0.7); IMMATURE GRANULOCYTE COUNT 0.3 K/uL; INSTRUMENT ABS NEUTROPHIL CT 19.3 K/uL; LYMPHOCYTE COUNT 1.7 K/uL (1.0-2.8); MCH 32.1 PG (29.0-34.0); MCHC 34.3 G/DL (30.0-36.0); MCV 93.5 FL (86-99); MEAN PLAT.VOLUME 8.4 uM^3 (9.0-12.4); MONOCYTE (%) 3.5 % (3-12); MONOCYTE COUNT 0.8 K/uL (0-0.8); NEUTROPHIL (%) 87.4 % (45-76); NEUTROPHIL COUNT 19.3 K/uL (1.8-6.4); PLATELET COUNT 407 K/uL (156-360); RBC DIS.WIDTH-CV 13.4 % (11.8-14.6); RBC DIS.WIDTH-SD 45.7 % (39-53); WHITE BLOOD COUNT 22.1 K/uL (4.1-10.2)
[2016-09-30 06:52] LABS: AMYLASE 262 IU/L (1-118); ANION GAP 10 MEQ/L (2-14); CHLORIDE 99 MEQ/L (99-109); GFR ESTIMATE (CALCULATED) > 59 mL/min/; GLUCOSE 149 mg/dL (70-99); LIPASE 280 U/L (1.0-51.0); POTASSIUM 3.3 MEQ/L (3.7-5.4); SAMPLE HEMOLYSIS CHECK 0; SAMPLE ICTERIC CHECK 0; SAMPLE LIPEMIA CHECK 0; SODIUM 133 MEQ/L (136-147); UREA NITROGEN (BUN) 5 mg/dL (9-23)
[2016-09-30 07:25] VITALS: BP 135/63
[2016-09-30 11:36] LABS: POINT-OF-CARE METER ID UU14162508
[2016-09-30 15:33] VITALS: BP 152/76
[2016-09-30 16:19] LABS: POINT-OF-CARE METER ID UU14162508
[2016-09-30 19:51] LABS: ADD MIUA? YES; BILIRUBIN NEGATIVE; BLOOD MODERATE; COLOR YELLOW ((YELLOW)); GLUCOSE (STRIP) NEGATIVE; KETONES NEGATIVE; LEUKOCYTES LARGE; NITRITE NEGATIVE; PROTEIN (STRIP) 30; SPECIFIC GRAVITY 1.017 (1.000-1.030); UROBILINOGEN 0.2 MG/DL (0.2-1.0)
[2016-09-30 20:22] LABS: BACTERIA 2+ /HPF; BUDDING YEAST 4+; EPITHELIAL CELLS RARE /HPF; MUCUS TRACE /LPF; RED BLOOD CELLS TNTC /HPF (0-5); WHITE BLOOD CELLS TNTC /HPF (0-5); WHITE BLOOD CELLS CLUMP MANY /HPF (0-5)
[2016-10-01 00:55] VITALS: BP 159/74
[2016-10-01 01:51] LABS: BODY FLUID PH 7.6 (())
[2016-10-01 06:58] LABS: HEMATOCRIT 30.1 % (38.0-50.0); MCHC 34.9 G/DL (30.0-36.0); MCV 91.8 FL (86-99); MEAN PLAT.VOLUME 8.5 uM^3 (9.0-12.4); PLATELET COUNT 360 K/uL (156-360); RBC DIS.WIDTH-CV 13.4 % (11.8-14.6); RBC DIS.WIDTH-SD 45.3 % (39-53); RED BLOOD COUNT 3.28 M/uL (4.00-5.50)
[2016-10-01 07:24] LABS: AMYLASE 196 IU/L (1-118); ANION GAP 9 MEQ/L (2-14); CHLORIDE 100 MEQ/L (99-109); GFR ESTIMATE (CALCULATED) > 59 mL/min/; LIPASE 187 U/L (1.0-51.0); POTASSIUM 2.7 MEQ/L (3.7-5.4); SAMPLE HEMOLYSIS CHECK 0; SAMPLE ICTERIC CHECK 0; SAMPLE LIPEMIA CHECK 0; SODIUM 134 MEQ/L (136-147); UREA NITROGEN (BUN) 5 mg/dL (9-23)
[2016-10-01 07:25] VITALS: BP 132/80
[2016-10-01 07:25] LABS: ALKALINE PHOSPHATASE 62 IU/L (3-129); ANION GAP 9 MEQ/L (2-14); CHLORIDE 101 MEQ/L (99-109); GFR ESTIMATE (CALCULATED) > 59 mL/min/; SAMPLE HEMOLYSIS CHECK 0; SAMPLE ICTERIC CHECK 0; SAMPLE LIPEMIA CHECK 0; SODIUM 137 MEQ/L (136-147); TOTAL BILIRUBIN 0.3 MG/DL (0.0-1.0); UREA NITROGEN (BUN) 5 mg/dL (9-23)
[2016-10-01 07:26] LABS: GLUCOSE 98 mg/dL (70-99); GLUCOSE 99 mg/dL (70-99)
[2016-10-01 11:03] LABS: INTERNAL CONTROL VALID? YES
[2016-10-01 15:10] VITALS: BP 153/72
[2016-10-01 16:31] LABS: POINT-OF-CARE USER ID PUTDRM
[2016-10-01 23:24] VITALS: BP 146/76
[2016-10-02 06:47] LABS: EOSINOPHIL (%) 0.5 % (0-5); EOSINOPHIL COUNT 0.1 K/uL (0-0.3); HEMATOCRIT 32.1 % (38.0-50.0); IMMATURE GRANULOCYTE (%) 0.7 % (0.0-0.7); IMMATURE GRANULOCYTE COUNT 0.1 K/uL; INSTRUMENT ABS NEUTROPHIL CT 9.5 K/uL; LYMPHOCYTE COUNT 2.6 K/uL (1.0-2.8); MCH 32.2 PG (29.0-34.0); MCHC 34.9 G/DL (30.0-36.0); MCV 92.2 FL (86-99); MEAN PLAT.VOLUME 8.6 uM^3 (9.0-12.4); MONOCYTE (%) 8.1 % (3-12); MONOCYTE COUNT 1.1 K/uL (0-0.8); NEUTROPHIL (%) 71.1 % (45-76); NEUTROPHIL COUNT 9.5 K/uL (1.8-6.4); PLATELET COUNT 366 K/uL (156-360); RBC DIS.WIDTH-CV 13.6 % (11.8-14.6); RBC DIS.WIDTH-SD 45.8 % (39-53); RED BLOOD COUNT 3.48 M/uL (4.00-5.50); WHITE BLOOD COUNT 13.4 K/uL (4.1-10.2)
[2016-10-02 07:15] VITALS: BP 135/76
[2016-10-02 07:20] LABS: ALKALINE PHOSPHATASE 64 IU/L (3-129); ANION GAP 7 MEQ/L (2-14); CHLORIDE 101 MEQ/L (99-109); DIRECT BILIRUBIN 0.1 mg/dL (0.0-0.3); GFR ESTIMATE (CALCULATED) > 59 mL/min/; GLUCOSE 72 mg/dL (70-99); LIPASE 187 U/L (1.0-51.0); POTASSIUM 3.3 MEQ/L (3.7-5.4); SAMPLE HEMOLYSIS CHECK 0; SAMPLE ICTERIC CHECK 0; SAMPLE LIPEMIA CHECK 0; SODIUM 136 MEQ/L (136-147); UREA NITROGEN (BUN) 5 mg/dL (9-23)
[2016-10-02 07:37] LABS: TOTAL BILIRUBIN 0.4 MG/DL (0.0-1.0)
[2016-10-02 15:45] VITALS: BP 114/86
[2016-10-02 21:46] LABS: POINT-OF-CARE METER ID UU14162508
[2016-10-03 00:21] VITALS: BP 145/76
[2016-10-03 05:54] LABS: HEMATOCRIT 31.8 % (38.0-50.0); MCH 30.4 PG (29.0-34.0); MCV 92.2 FL (86-99); MEAN PLAT.VOLUME 8.5 uM^3 (9.0-12.4); PLATELET COUNT 365 K/uL (156-360); RBC DIS.WIDTH-CV 13.6 % (11.8-14.6); RBC DIS.WIDTH-SD 45.4 % (39-53); RED BLOOD COUNT 3.45 M/uL (4.00-5.50); WHITE BLOOD COUNT 14.6 K/uL (4.1-10.2)
[2016-10-03 06:34] LABS: ALKALINE PHOSPHATASE 59 IU/L (3-129); ANION GAP 5 MEQ/L (2-14); CHLORIDE 101 MEQ/L (99-109); GFR ESTIMATE (CALCULATED) > 59 mL/min/; GLUCOSE 100 mg/dL (70-99); LIPASE 249 U/L (1.0-51.0); POTASSIUM 4.2 MEQ/L (3.7-5.4); SAMPLE HEMOLYSIS CHECK 0; SAMPLE ICTERIC CHECK 0; SAMPLE LIPEMIA CHECK 0; SODIUM 135 MEQ/L (136-147); TOTAL BILIRUBIN 0.3 MG/DL (0.0-1.0); UREA NITROGEN (BUN) 9 mg/dL (9-23)
[2016-10-03 07:48] VITALS: BP 129/73
[2016-10-03 15:33] VITALS: BP 109/56
[2016-10-04 00:41] VITALS: BP 148/74
[2016-10-04 08:00] VITALS: BP 129/73
[2016-10-04 08:30] LABS: ANION GAP 8 MEQ/L (2-14); CHLORIDE 98 MEQ/L (99-109); GFR ESTIMATE (CALCULATED) > 59 mL/min/; GLUCOSE 74 mg/dL (70-99); LIPASE 87 U/L (1.0-51.0); SAMPLE HEMOLYSIS CHECK 0; SAMPLE ICTERIC CHECK 0; SAMPLE LIPEMIA CHECK 0; SODIUM 135 MEQ/L (136-147); UREA NITROGEN (BUN) 11 mg/dL (9-23)
[2016-10-04 11:13] VITALS: BP 126/71
[2016-10-04 15:42] VITALS: BP 135/71
[2016-10-04] MEDS ORDERED: ADVAIR HFA120 INHAL1 IH (21:20)
[2016-10-04] MEDS ORDERED: MUCINEX600 MG PO (21:20)
[2016-10-04] MEDS ORDERED: DUONEB 2.5-0.5 M3 ML AEROSOL (21:20)
[2016-10-04] MEDS ORDERED: FLORASTOR250 MG PO (21:21)
[2016-10-04] MEDS ORDERED: PANTOPRAZOLE SO40 MG PO (21:21)
[2016-10-04] MEDS ORDERED: PREDNISONE20 MG PO (21:22)
[2016-10-04] MEDS ORDERED: CAMPRAL333 MG PO (21:34)
[2016-10-04 23:51] VITALS: BP 109/63
[2016-10-05 07:32] VITALS: BP 111/60
[2016-10-05 07:46] LABS: EOSINOPHIL COUNT 0.2 K/uL (0-0.3); IMMATURE GRANULOCYTE (%) 1.5 % (0.0-0.7); IMMATURE GRANULOCYTE COUNT 0.3 K/uL; INSTRUMENT ABS NEUTROPHIL CT 12.8 K/uL; LYMPHOCYTE COUNT 4.6 K/uL (1.0-2.8); MCH 31.7 PG (29.0-34.0); MCHC 33.6 G/DL (30.0-36.0); MCV 94.2 FL (86-99); MEAN PLAT.VOLUME 8.8 uM^3 (9.0-12.4); MONOCYTE (%) 7.4 % (3-12); MONOCYTE COUNT 1.4 K/uL (0-0.8); NEUTROPHIL COUNT 12.8 K/uL (1.8-6.4); RBC DIS.WIDTH-SD 48.4 % (39-53); RED BLOOD COUNT 3.82 M/uL (4.00-5.50); WHITE BLOOD COUNT 19.3 K/uL (4.1-10.2)
[2016-10-05 07:59] LABS: PLATELET COUNT 487 K/uL (156-360)
[2016-10-05 08:03] LABS: ANION GAP 10 MEQ/L (2-14); CHLORIDE 99 MEQ/L (99-109); GFR ESTIMATE (CALCULATED) > 59 mL/min/; GLUCOSE 74 mg/dL (70-99); POTASSIUM 4.4 MEQ/L (3.7-5.4); SAMPLE HEMOLYSIS CHECK 0; SAMPLE ICTERIC CHECK 0; SAMPLE LIPEMIA CHECK 0; SODIUM 135 MEQ/L (136-147); UREA NITROGEN (BUN) 14 mg/dL (9-23)
[2016-10-05 15:31] VITALS: BP 118/69
[2016-10-05 23:38] VITALS: BP 132/70
[2016-10-06 06:21] LABS: EOSINOPHIL (%) 1.2 % (0-5); EOSINOPHIL COUNT 0.2 K/uL (0-0.3); HEMATOCRIT 31.3 % (38.0-50.0); IMMATURE GRANULOCYTE (%) 1.7 % (0.0-0.7); IMMATURE GRANULOCYTE COUNT 0.3 K/uL; INSTRUMENT ABS NEUTROPHIL CT 9.3 K/uL; LYMPHOCYTE COUNT 3.4 K/uL (1.0-2.8); MCH 31.1 PG (29.0-34.0); MCHC 33.5 G/DL (30.0-36.0); MCV 92.6 FL (86-99); MEAN PLAT.VOLUME 8.5 uM^3 (9.0-12.4); MONOCYTE (%) 10.2 % (3-12); MONOCYTE COUNT 1.5 K/uL (0-0.8); NEUTROPHIL (%) 63.8 % (45-76); NEUTROPHIL COUNT 9.3 K/uL (1.8-6.4); PLATELET COUNT 403 K/uL (156-360); RBC DIS.WIDTH-CV 13.9 % (11.8-14.6); RBC DIS.WIDTH-SD 47.3 % (39-53); RED BLOOD COUNT 3.38 M/uL (4.00-5.50); WHITE BLOOD COUNT 14.6 K/uL (4.1-10.2)
[2016-10-06 06:27] VITALS: BP 121/69
[2016-10-06 06:47] LABS: ANION GAP 7 MEQ/L (2-14); CHLORIDE 100 MEQ/L (99-109); GFR ESTIMATE (CALCULATED) > 59 mL/min/; GLUCOSE 89 mg/dL (70-99); LIPASE 98 U/L (1.0-51.0); POTASSIUM 4.4 MEQ/L (3.7-5.4); SAMPLE HEMOLYSIS CHECK 0; SAMPLE ICTERIC CHECK 0; SAMPLE LIPEMIA CHECK 0; SODIUM 133 MEQ/L (136-147); UREA NITROGEN (BUN) 15 mg/dL (9-23)
[2016-10-06 15:31] VITALS: BP 145/69
[2016-10-07 00:35] VITALS: BP 123/67
[2016-10-07 08:45] VITALS: BP 141/69
[2016-10-07 11:17] VITALS: BP 101/51
[2016-10-07 15:28] VITALS: BP 132/65
[2016-10-07 23:47] VITALS: BP 137/71
[2016-10-08 07:15] VITALS: BP 138/63
[2016-10-08 15:39] VITALS: BP 104/52
[2016-10-08] MEDS ORDERED: LEVAQUIN750 MG PO (18:18)
== END 2016-10-08 19:00 | disposition home or self-care (01) | DRG 438 ==
LOC: EME 11:24 → 2EAST 16:55 → EDOF 16:55 → 2EAST 20:37
PROVIDERS: Family Medicine Sports Medicine; Internal Medicine Gastroenterology; Internal Medicine Pulmonary Disease
PROC: 0DJ08ZZ Inspection of Upper Intestinal Tract, Via Natural or Artificial Opening Endoscopic (ICD-10-PCS; principal; 2016-09-29)
PROC: 0W993ZX Drainage of Right Pleural Cavity, Percutaneous Approach, Diagnostic (ICD-10-PCS; principal; 2016-09-29)
PROC: 0W993ZZ Drainage of Right Pleural Cavity, Percutaneous Approach (ICD-10-PCS; 2016-10-04)
DX: K85.20 Alcohol induced acute pancreatitis without necrosis or infection (principal); J90 Pleural effusion, not elsewhere classified; I26.99 Other pulmonary embolism without acute cor pulmonale; J44.1 Chronic obstructive pulmonary disease with (acute) exacerbation; J18.9 Pneumonia, unspecified organism; I27.2 Other secondary pulmonary hypertension; R73.9 Hyperglycemia, unspecified; K86.1 Other chronic pancreatitis; K29.70 Gastritis, unspecified, without bleeding; F10.20 Alcohol dependence, uncomplicated; K29.80 Duodenitis without bleeding; E87.1 Hypo-osmolality and hyponatremia; I10 Essential (primary) hypertension; F41.9 Anxiety disorder, unspecified; K21.9 Gastro-esophageal reflux disease without esophagitis; J98.11 Atelectasis; K44.9 Diaphragmatic hernia without obstruction or gangrene; D64.9 Anemia, unspecified; E78.5 Hyperlipidemia, unspecified; F17.200 Nicotine dependence, unspecified, uncomplicated; Z87.01 Personal history of pneumonia (recurrent); F32.9 Major depressive disorder, single episode, unspecified; Z86.718 Personal history of other venous thrombosis and embolism; Z87.442 Personal history of urinary calculi; Z86.711 Personal history of pulmonary embolism
CPT/HCPCS: 32555; 71020; 71275; 74176; 80048; 80053; 80061; 80076; 81003; 82150; 82945; 82948; 83605; 83615 91; 83690; 83986 90; 84157; 84484; 85025; 85027; 85379; 85610; 85651; 85730; 86140; 86301 90; 87040; 87070; 87075; 87205; 87449; 88108; 88305; 89051; 93005; 94010; 94640; 94640 76; 94667; 94668; 94760; 99202; 99281; 99285; G0480; J0456; J0696; J1650; J1815; J1956; J2405; J2543; J2930; J3480; J7030; J7050; J7512

== ENCOUNTER 2016-10-10 13:46 | Inpatient (IN) | payer OTHER ==
[~2016-10-10] VITALS: Ht 180.3 cm; Wt 58.8 kg
[~2016-10-10 13:46] MED LIST changes: +ADVAIR HFA120 INHAL1 IH; +CAMPRAL333 MG PO; +DUONEB 2.5-0.5 M3 ML AEROSOL; +FLORASTOR250 MG PO; +LEVAQUIN750 MG PO; +MUCINEX600 MG PO; +PANTOPRAZOLE SO40 MG PO; +PREDNISONE20 MG PO
[2016-10-10 15:02] LABS: EOSINOPHIL (%) 0.9 % (0-5); EOSINOPHIL COUNT 0.2 K/uL (0-0.3); HEMATOCRIT 32.8 % (38.0-50.0); IMMATURE GRANULOCYTE (%) 1.8 % (0.0-0.7); IMMATURE GRANULOCYTE COUNT 0.3 K/uL; INSTRUMENT ABS NEUTROPHIL CT 14.2 K/uL; LYMPHOCYTE COUNT 2.8 K/uL (1.0-2.8); MCH 30.9 PG (29.0-34.0); MCHC 32.9 G/DL (30.0-36.0); MEAN PLAT.VOLUME 8.9 uM^3 (9.0-12.4); MONOCYTE (%) 5.9 % (3-12); MONOCYTE COUNT 1.1 K/uL (0-0.8); NEUTROPHIL (%) 76.2 % (45-76); NEUTROPHIL COUNT 14.2 K/uL (1.8-6.4); RBC DIS.WIDTH-CV 13.9 % (11.8-14.6); RBC DIS.WIDTH-SD 47.5 % (39-53); RED BLOOD COUNT 3.49 M/uL (4.00-5.50); WHITE BLOOD COUNT 18.7 K/uL (4.1-10.2)
[2016-10-10 15:03] LABS: CHLORIDE 100 mEq/L (99-109)
[2016-10-10 15:04] LABS: POTASSIUM 4.4 mEq/L (3.7-5.4); SODIUM 135 mEq/L (136-147)
[2016-10-10 15:05] LABS: PLATELET COUNT 601 K/uL (156-360)
[2016-10-10 15:06] LABS: GLUCOSE 111 mg/dL (70-99)
[2016-10-10 15:07] LABS: ANION GAP 13 MEQ/L (2-14)
[2016-10-10 15:08] LABS: TOTAL BILIRUBIN 0.4 mg/dL (0.0-1.0)
[2016-10-10 15:09] LABS: ALKALINE PHOSPHATASE 78 IU/L (3-129); GFR ESTIMATE (CALCULATED) > 59 mL/min/
[2016-10-10 15:11] LABS: UREA NITROGEN (BUN) 15 mg/dL (9-23)
[2016-10-10 15:13] LABS: LIPASE 304 U/L (1.0-51.0)
[2016-10-10] MEDS ORDERED: DUONEB 2.5-0.5 M3 ML AEROSOL (16:49)
[2016-10-10] MEDS ORDERED: ADVAIR HFA120 INHAL1 IH (16:50)
[2016-10-10] MEDS ORDERED: MUCINEX600 MG PO (16:51)
[2016-10-10] MEDS ORDERED: PANTOPRAZOLE SO40 MG PO (16:51)
[2016-10-10] MEDS ORDERED: FLORASTOR250 MG PO (16:53)
[2016-10-10] MEDS ORDERED: ACAMPROSATE CA333 MG PO (16:54)
[2016-10-10] MEDS ORDERED: PREDNISONE10 MG PO (16:54)
[2016-10-10] MEDS ORDERED: LEVOFLOXACIN750 MG PO (16:55)
[2016-10-10 21:13] VITALS: BP 139/74
[2016-10-10 23:57] VITALS: BP 141/82
[2016-10-11 03:30] VITALS: BP 126/77
[2016-10-11 06:04] LABS: MCH 32.2 PG (29.0-34.0); MCHC 33.9 G/DL (30.0-36.0); MCV 95.1 FL (86-99); MEAN PLAT.VOLUME 8.8 uM^3 (9.0-12.4); PLATELET COUNT 449 K/uL (156-360); RBC DIS.WIDTH-CV 13.9 % (11.8-14.6); RBC DIS.WIDTH-SD 48.4 % (39-53); RED BLOOD COUNT 3.26 M/uL (4.00-5.50); WHITE BLOOD COUNT 13.4 K/uL (4.1-10.2)
[2016-10-11 06:32] LABS: ALKALINE PHOSPHATASE 60 IU/L (3-129); ANION GAP 9 MEQ/L (2-14); CHLORIDE 103 MEQ/L (99-109); GFR ESTIMATE (CALCULATED) > 59 mL/min/; LIPASE 375 U/L (1.0-51.0); POTASSIUM 4.7 MEQ/L (3.7-5.4); SAMPLE HEMOLYSIS CHECK 0; SAMPLE ICTERIC CHECK 0; SAMPLE LIPEMIA CHECK 0; SODIUM 134 MEQ/L (136-147); TOTAL BILIRUBIN 0.6 MG/DL (0.0-1.0); UREA NITROGEN (BUN) 11 mg/dL (9-23)
[2016-10-11 06:34] LABS: GLUCOSE 80 mg/dL (70-99)
[2016-10-11 08:31] VITALS: BP 133/76
[2016-10-11 11:58] VITALS: BP 137/81
[2016-10-11 16:16] VITALS: BP 136/78
[2016-10-11 20:27] VITALS: BP 114/60
[2016-10-11 23:40] VITALS: BP 115/62
[2016-10-12 04:08] VITALS: BP 128/75
[2016-10-12 07:11] LABS: EOSINOPHIL (%) 1.4 % (0-5); EOSINOPHIL COUNT 0.2 K/uL (0-0.3); HEMATOCRIT 30.9 % (38.0-50.0); IMMATURE GRANULOCYTE (%) 1.2 % (0.0-0.7); IMMATURE GRANULOCYTE COUNT 0.1 K/uL; INSTRUMENT ABS NEUTROPHIL CT 7.4 K/uL; LYMPHOCYTE COUNT 2.9 K/uL (1.0-2.8); MCH 32.2 PG (29.0-34.0); MCV 94.8 FL (86-99); MEAN PLAT.VOLUME 8.8 uM^3 (9.0-12.4); MONOCYTE (%) 7.2 % (3-12); MONOCYTE COUNT 0.8 K/uL (0-0.8); NEUTROPHIL (%) 64.7 % (45-76); NEUTROPHIL COUNT 7.4 K/uL (1.8-6.4); PLATELET COUNT 470 K/uL (156-360); RBC DIS.WIDTH-CV 13.8 % (11.8-14.6); RED BLOOD COUNT 3.26 M/uL (4.00-5.50); WHITE BLOOD COUNT 11.5 K/uL (4.1-10.2)
[2016-10-12 07:39] VITALS: BP 139/71
[2016-10-12 07:40] LABS: ANION GAP 7 MEQ/L (2-14); CHLORIDE 103 MEQ/L (99-109); GFR ESTIMATE (CALCULATED) > 59 mL/min/; GLUCOSE 90 mg/dL (70-99); LIPASE 454 U/L (1.0-51.0); POTASSIUM 4.8 MEQ/L (3.7-5.4); SAMPLE HEMOLYSIS CHECK 0; SAMPLE ICTERIC CHECK 0; SAMPLE LIPEMIA CHECK 0; SODIUM 135 MEQ/L (136-147); UREA NITROGEN (BUN) 11 mg/dL (9-23)
[2016-10-12 11:40] VITALS: BP 129/73
[2016-10-12 16:07] VITALS: BP 136/68
[2016-10-12 19:29] VITALS: BP 145/69
[2016-10-12 23:17] VITALS: BP 141/62
[2016-10-13 03:35] VITALS: BP 149/81
[2016-10-13 06:52] LABS: ANION GAP 7 MEQ/L (2-14); CHLORIDE 104 MEQ/L (99-109); GFR ESTIMATE (CALCULATED) > 59 mL/min/; GLUCOSE 81 mg/dL (70-99); LIPASE 380 U/L (1.0-51.0); POTASSIUM 4.7 MEQ/L (3.7-5.4); SAMPLE HEMOLYSIS CHECK 1; SAMPLE ICTERIC CHECK 0; SAMPLE LIPEMIA CHECK 0; SODIUM 135 MEQ/L (136-147); UREA NITROGEN (BUN) 12 mg/dL (9-23)
[2016-10-13 08:02] VITALS: BP 163/84
[2016-10-13 15:47] LABS: BODY FLUID PROTEIN 3.3 G/DL
[2016-10-13 16:14] VITALS: BP 161/77
[2016-10-13 19:38] VITALS: BP 118/65
[2016-10-13 19:45] VITALS: BP 141/84
[2016-10-13 23:43] VITALS: BP 140/80
[2016-10-14 04:20] VITALS: BP 136/75
[2016-10-14 06:36] LABS: HEMATOCRIT 28.2 % (38.0-50.0); MCH 30.6 PG (29.0-34.0); MCV 92.8 FL (86-99); MEAN PLAT.VOLUME 8.3 uM^3 (9.0-12.4); PLATELET COUNT 393 K/uL (156-360); RBC DIS.WIDTH-CV 14.1 % (11.8-14.6); RBC DIS.WIDTH-SD 48.3 % (39-53); RED BLOOD COUNT 3.04 M/uL (4.00-5.50); WHITE BLOOD COUNT 11.8 K/uL (4.1-10.2)
[2016-10-14 07:07] LABS: ALKALINE PHOSPHATASE 54 IU/L (3-129); ANION GAP 5 MEQ/L (2-14); CHLORIDE 104 MEQ/L (99-109); DIRECT BILIRUBIN 0.1 mg/dL (0.0-0.3); GFR ESTIMATE (CALCULATED) > 59 mL/min/; GLUCOSE 77 mg/dL (70-99); POTASSIUM 4.3 MEQ/L (3.7-5.4); SAMPLE HEMOLYSIS CHECK 0; SAMPLE ICTERIC CHECK 0; SAMPLE LIPEMIA CHECK 0; SODIUM 135 MEQ/L (136-147); UREA NITROGEN (BUN) 13 mg/dL (9-23)
[2016-10-14 07:32] LABS: AMYLASE 526 IU/L (1-118)
[2016-10-14 07:33] LABS: TOTAL BILIRUBIN 0.4 MG/DL (0.0-1.0)
[2016-10-14 07:36] VITALS: BP 124/93
[2016-10-14 11:54] VITALS: BP 133/69
[2016-10-14 16:24] VITALS: BP 130/71
[2016-10-14 19:51] VITALS: BP 118/59
[2016-10-15] VITALS (8 sets, daily range): BP systolic 145–166; BP diastolic 69–97
[2016-10-16 04:08] VITALS: BP 166/88
[2016-10-16 08:03] VITALS: BP 168/88
[2016-10-16 14:57] VITALS: BP 140/89
[2016-10-16 15:49] VITALS: BP 124/71
[2016-10-16 17:18] LABS: TYPE OF FLUID THORACENTESIS
[2016-10-16 18:15] LABS: BODY FLUID LDH 426 IU/L; BODY FLUID PROTEIN < 3.0 G/DL
[2016-10-16 18:22] LABS: BODY FLUID EOSINOPHILS 1 % (0-25); BODY FLUID RBC'S 96000 /MM^3 (0-100); BODY FLUID WBC'S 3443 /MM^3 (0-500); COMMENT FEW MACROPHAGES SEEN; MONONUCLEAR WBC'S 12 %; POLYNUCLEAR WBC'S 87 % (0-25)
[2016-10-16 20:30] VITALS: BP 153/79
[2016-10-16 23:54] VITALS: BP 157/95
[2016-10-17 04:51] VITALS: BP 137/77
[2016-10-17 08:43] VITALS: BP 145/75
[2016-10-17 11:45] VITALS: BP 169/78
[2016-10-17 16:44] VITALS: BP 148/74
[2016-10-17 20:40] VITALS: BP 156/83
[2016-10-17 23:38] VITALS: BP 144/80
[2016-10-18 04:27] VITALS: BP 160/92
[2016-10-18 08:51] VITALS: BP 152/74
[2016-10-18 13:24] VITALS: BP 121/68
[2016-10-18 16:53] VITALS: BP 142/78
[2016-10-18 19:43] VITALS: BP 130/71
[2016-10-18 23:45] VITALS: BP 122/65
[2016-10-19 04:05] VITALS: BP 126/66
[2016-10-19 07:06] LABS: ALKALINE PHOSPHATASE 70 IU/L (3-129); ANION GAP 11 MEQ/L (2-14); CHLORIDE 98 MEQ/L (99-109); GFR ESTIMATE (CALCULATED) > 59 mL/min/; GLUCOSE 81 mg/dL (70-99); LIPASE 269 U/L (1.0-51.0); POTASSIUM 4.8 MEQ/L (3.7-5.4); SAMPLE HEMOLYSIS CHECK 1; SAMPLE ICTERIC CHECK 0; SAMPLE LIPEMIA CHECK 0; SODIUM 131 MEQ/L (136-147); UREA NITROGEN (BUN) 15 mg/dL (9-23)
[2016-10-19 07:07] LABS: TOTAL BILIRUBIN 0.8 MG/DL (0.0-1.0)
[2016-10-19 07:14] LABS: EOSINOPHIL (%) 0.7 % (0-5); EOSINOPHIL COUNT 0.1 K/uL (0-0.3); HEMATOCRIT 32.5 % (38.0-50.0); IMMATURE GRANULOCYTE (%) 1.3 % (0.0-0.7); IMMATURE GRANULOCYTE COUNT 0.3 K/uL; INSTRUMENT ABS NEUTROPHIL CT 15.8 K/uL; LYMPHOCYTE COUNT 2.2 K/uL (1.0-2.8); MCH 31.7 PG (29.0-34.0); MCHC 34.8 G/DL (30.0-36.0); MCV 91.3 FL (86-99); MEAN PLAT.VOLUME 9.1 uM^3 (9.0-12.4); MONOCYTE (%) 5.7 % (3-12); MONOCYTE COUNT 1.1 K/uL (0-0.8); NEUTROPHIL (%) 80.9 % (45-76); NEUTROPHIL COUNT 15.8 K/uL (1.8-6.4); PLATELET COUNT 500 K/uL (156-360); RBC DIS.WIDTH-CV 13.8 % (11.8-14.6); RBC DIS.WIDTH-SD 46.5 % (39-53); RED BLOOD COUNT 3.56 M/uL (4.00-5.50); WHITE BLOOD COUNT 19.5 K/uL (4.1-10.2)
[2016-10-19 08:03] VITALS: BP 121/68
[2016-10-19 11:57] VITALS: BP 129/78
[2016-10-19 12:00] VITALS: BP 11/59; BP 115/69
[2016-10-19 15:50] VITALS: BP 121/71
[2016-10-19 21:41] VITALS: BP 135/77
[2016-10-20 04:07] VITALS: BP 119/76
[2016-10-20 07:12] LABS: HEMATOCRIT 30.7 % (38.0-50.0); MCH 31.2 PG (29.0-34.0); MCHC 33.2 G/DL (30.0-36.0); MCV 93.9 FL (86-99); MEAN PLAT.VOLUME 8.7 uM^3 (9.0-12.4); PLATELET COUNT 477 K/uL (156-360); RBC DIS.WIDTH-SD 47.8 % (39-53); RED BLOOD COUNT 3.27 M/uL (4.00-5.50); WHITE BLOOD COUNT 16.4 K/uL (4.1-10.2)
[2016-10-20 07:31] VITALS: BP 111/62
[2016-10-20 07:42] LABS: ANION GAP 13 MEQ/L (2-14); CHLORIDE 100 MEQ/L (99-109); GFR ESTIMATE (CALCULATED) > 59 mL/min/; POTASSIUM 4.5 MEQ/L (3.7-5.4); SAMPLE HEMOLYSIS CHECK 0; SAMPLE ICTERIC CHECK 0; SAMPLE LIPEMIA CHECK 0; SODIUM 135 MEQ/L (136-147); UREA NITROGEN (BUN) 17 mg/dL (9-23)
[2016-10-20 07:43] LABS: GLUCOSE 105 mg/dL (70-99)
[2016-10-20 19:24] VITALS: BP 129/61
[2016-10-21 00:32] VITALS: BP 136/94
[2016-10-21 03:52] VITALS: BP 162/77
[2016-10-21 07:53] VITALS: BP 130/70
[2016-10-21 10:58] VITALS: BP 130/65
[2016-10-21 16:22] VITALS: BP 147/71
[2016-10-21 20:44] VITALS: BP 135/65
[2016-10-22 00:09] VITALS: BP 167/80
[2016-10-22 19:47] VITALS: BP 142/74
[2016-10-23 00:16] VITALS: BP 137/73
[2016-10-23 06:19] LABS: EOSINOPHIL (%) 2.5 % (0-5); EOSINOPHIL COUNT 0.4 K/uL (0-0.3); HEMATOCRIT 31.6 % (38.0-50.0); IMMATURE GRANULOCYTE (%) 1.1 % (0.0-0.7); IMMATURE GRANULOCYTE COUNT 0.2 K/uL; INSTRUMENT ABS NEUTROPHIL CT 13.4 K/uL; LYMPHOCYTE COUNT 2.3 K/uL (1.0-2.8); MCH 30.3 PG (29.0-34.0); MCHC 33.5 G/DL (30.0-36.0); MCV 90.3 FL (86-99); MEAN PLAT.VOLUME 8.5 uM^3 (9.0-12.4); MONOCYTE (%) 4.9 % (3-12); MONOCYTE COUNT 0.9 K/uL (0-0.8); NEUTROPHIL (%) 77.9 % (45-76); NEUTROPHIL COUNT 13.4 K/uL (1.8-6.4); PLATELET COUNT 502 K/uL (156-360); RBC DIS.WIDTH-CV 13.7 % (11.8-14.6); RBC DIS.WIDTH-SD 45.6 % (39-53); WHITE BLOOD COUNT 17.2 K/uL (4.1-10.2)
[2016-10-23 07:07] LABS: ANION GAP 12 MEQ/L (2-14); CHLORIDE 95 MEQ/L (99-109); GFR ESTIMATE (CALCULATED) > 59 mL/min/; LIPASE 293 U/L (1.0-51.0); POTASSIUM 4.7 MEQ/L (3.7-5.4); SAMPLE HEMOLYSIS CHECK 0; SAMPLE ICTERIC CHECK 0; SAMPLE LIPEMIA CHECK 0; SODIUM 129 MEQ/L (136-147); UREA NITROGEN (BUN) 12 mg/dL (9-23)
[2016-10-23 07:11] LABS: GLUCOSE 72 mg/dL (70-99)
[2016-10-23 08:00] VITALS: BP 126/66
[2016-10-23 15:01] LABS: TROP-I INTERPRETATION NEGATIVE; TROPONIN-I 0.02 ng/mL (0.0-0.30)
[2016-10-23 15:45] VITALS: BP 122/61
[2016-10-23 23:45] VITALS: BP 119/71
[2016-10-24] VITALS (15 sets, daily range): BP systolic 115–162; BP diastolic 59–92
[2016-10-24 14:52] LABS: METH RESISTANT S AUREUS PCR NEGATIVE (NEGATIVE)
[2016-10-24 14:54] LABS: PROBE CHECK PASS; SPECIMEN PROCESSING CONTROL PASS
[2016-10-25] VITALS (15 sets, daily range): BP systolic 94–160; BP diastolic 54–87
[2016-10-25 06:08] LABS: EOSINOPHIL (%) 0.2 % (0-5); HEMATOCRIT 29.3 % (38.0-50.0); IMMATURE GRANULOCYTE (%) 1.4 % (0.0-0.7); IMMATURE GRANULOCYTE COUNT 0.2 K/uL; INSTRUMENT ABS NEUTROPHIL CT 11.7 K/uL; LYMPHOCYTE COUNT 0.6 K/uL (1.0-2.8); MCH 30.8 PG (29.0-34.0); MCHC 33.8 G/DL (30.0-36.0); MCV 91.3 FL (86-99); MEAN PLAT.VOLUME 8.4 uM^3 (9.0-12.4); MONOCYTE (%) 0.4 % (3-12); MONOCYTE COUNT 0.1 K/uL (0-0.8); NEUTROPHIL COUNT 11.7 K/uL (1.8-6.4); PLATELET COUNT 469 K/uL (156-360); RBC DIS.WIDTH-CV 13.5 % (11.8-14.6); RBC DIS.WIDTH-SD 45.2 % (39-53); RED BLOOD COUNT 3.21 M/uL (4.00-5.50); WHITE BLOOD COUNT 12.6 K/uL (4.1-10.2)
[2016-10-25 06:39] LABS: ANION GAP 9 MEQ/L (2-14); CHLORIDE 98 MEQ/L (99-109); GFR ESTIMATE (CALCULATED) > 59 mL/min/; LIPASE 460 U/L (1.0-51.0); POTASSIUM 4.7 MEQ/L (3.7-5.4); SAMPLE HEMOLYSIS CHECK 0; SAMPLE ICTERIC CHECK 0; SAMPLE LIPEMIA CHECK 0; SODIUM 130 MEQ/L (136-147); UREA NITROGEN (BUN) 15 mg/dL (9-23)
[2016-10-25 06:45] LABS: AMYLASE 378 IU/L (1-118); GLUCOSE 136 mg/dL (70-99)
[2016-10-26] VITALS (9 sets, daily range): BP systolic 139–169; BP diastolic 70–89
[2016-10-26 02:02] LABS: METH RESISTANT S AUREUS PCR NEGATIVE (NEGATIVE)
[2016-10-26 02:07] LABS: PROBE CHECK PASS; SPECIMEN PROCESSING CONTROL PASS
[2016-10-26 05:38] LABS: EOSINOPHIL (%) 0.3 % (0-5); EOSINOPHIL COUNT 0.1 K/uL (0-0.3); HEMATOCRIT 29.2 % (38.0-50.0); IMMATURE GRANULOCYTE (%) 1.8 % (0.0-0.7); IMMATURE GRANULOCYTE COUNT 0.4 K/uL; INSTRUMENT ABS NEUTROPHIL CT 19.8 K/uL; LYMPHOCYTE COUNT 2.2 K/uL (1.0-2.8); MCH 30.9 PG (29.0-34.0); MCHC 33.6 G/DL (30.0-36.0); MCV 92.1 FL (86-99); MEAN PLAT.VOLUME 8.8 uM^3 (9.0-12.4); MONOCYTE (%) 4.8 % (3-12); MONOCYTE COUNT 1.1 K/uL (0-0.8); NEUTROPHIL (%) 83.8 % (45-76); NEUTROPHIL COUNT 19.8 K/uL (1.8-6.4); PLATELET COUNT 574 K/uL (156-360); RBC DIS.WIDTH-CV 13.5 % (11.8-14.6); RBC DIS.WIDTH-SD 46.3 % (39-53); RED BLOOD COUNT 3.17 M/uL (4.00-5.50); WHITE BLOOD COUNT 23.6 K/uL (4.1-10.2)
[2016-10-26 06:15] LABS: ANION GAP 7 MEQ/L (2-14); CHLORIDE 98 MEQ/L (99-109); GFR ESTIMATE (CALCULATED) > 59 mL/min/; GLUCOSE 127 mg/dL (70-99); POTASSIUM 4.9 MEQ/L (3.7-5.4); SAMPLE HEMOLYSIS CHECK 0; SAMPLE ICTERIC CHECK 0; SAMPLE LIPEMIA CHECK 0; SODIUM 133 MEQ/L (136-147); UREA NITROGEN (BUN) 20 mg/dL (9-23)
[2016-10-27 08:00] VITALS: BP 113/67
[2016-10-27 12:00] VITALS: BP 118/72
[2016-10-27 16:00] VITALS: BP 164/84
[2016-10-28] VITALS (8 sets, daily range): BP systolic 104–145; BP diastolic 55–71
[2016-10-28 14:32] LABS: HEMATOCRIT 32.5 % (38.0-50.0); MCH 30.2 PG (29.0-34.0); MCHC 32.3 G/DL (30.0-36.0); MCV 93.4 FL (86-99); MEAN PLAT.VOLUME 8.3 uM^3 (9.0-12.4); PLATELET COUNT 524 K/uL (156-360); RBC DIS.WIDTH-CV 13.6 % (11.8-14.6); RBC DIS.WIDTH-SD 46.8 % (39-53); RED BLOOD COUNT 3.48 M/uL (4.00-5.50); WHITE BLOOD COUNT 17.1 K/uL (4.1-10.2)
[2016-10-28 14:35] LABS: ANION GAP 7 MEQ/L (2-14); CHLORIDE 98 MEQ/L (99-109); POTASSIUM 4.7 MEQ/L (3.7-5.4); SAMPLE HEMOLYSIS CHECK 0; SAMPLE ICTERIC CHECK 0; SAMPLE LIPEMIA CHECK 0; SODIUM 131 MEQ/L (136-147); TOTAL BILIRUBIN 0.3 MG/DL (0.0-1.0)
[2016-10-28 14:41] LABS: ALKALINE PHOSPHATASE 71 IU/L (3-129); GFR ESTIMATE (CALCULATED) > 59 mL/min/; GLUCOSE 107 mg/dL (70-99); UREA NITROGEN (BUN) 15 mg/dL (9-23)
[2016-10-28 18:44] LABS: ADD MIUA? YES; BILIRUBIN NEGATIVE; BLOOD SMALL; COLOR AMBER ((YELLOW)); GLUCOSE (STRIP) NEGATIVE; KETONES NEGATIVE; LEUKOCYTES LARGE; NITRITE NEGATIVE; PROTEIN (STRIP) 30; SPECIFIC GRAVITY 1.016 (1.000-1.030); UROBILINOGEN 0.2 MG/DL (0.2-1.0)
[2016-10-28 19:11] LABS: BACTERIA 1+ /HPF; EPITHELIAL CELLS RARE /HPF; MUCUS TRACE /LPF; RED BLOOD CELLS NONE SEEN /HPF (0-5); WHITE BLOOD CELLS TNTC /HPF (0-5); WHITE BLOOD CELLS CLUMP MOD /HPF (0-5)
[2016-10-29] VITALS (7 sets, daily range): BP systolic 110–146; BP diastolic 62–73
[2016-10-30] VITALS (8 sets, daily range): BP systolic 104–129; BP diastolic 59–71
[2016-10-30 13:31] LABS: HEMATOCRIT 34.4 % (38.0-50.0); MCH 30.4 PG (29.0-34.0); MCHC 33.1 G/DL (30.0-36.0); MCV 91.7 FL (86-99); PLATELET COUNT 540 K/uL (156-360); RBC DIS.WIDTH-CV 13.6 % (11.8-14.6); RBC DIS.WIDTH-SD 46.2 % (39-53); RED BLOOD COUNT 3.75 M/uL (4.00-5.50)
[2016-10-30 13:47] LABS: ANION GAP 9 MEQ/L (2-14); CHLORIDE 97 MEQ/L (99-109); POTASSIUM 4.5 MEQ/L (3.7-5.4); SAMPLE HEMOLYSIS CHECK 0; SAMPLE ICTERIC CHECK 0; SAMPLE LIPEMIA CHECK 0; SODIUM 130 MEQ/L (136-147)
[2016-10-30 13:52] LABS: GFR ESTIMATE (CALCULATED) > 59 mL/min/; GLUCOSE 110 mg/dL (70-99); UREA NITROGEN (BUN) 13 mg/dL (9-23)
[2016-10-30 13:57] LABS: TROP-I INTERPRETATION NEGATIVE; TROPONIN-I < 0.01 ng/mL (0.0-0.30)
[2016-10-31] VITALS (10 sets, daily range): BP systolic 76–122; BP diastolic 45–64
[2016-10-31 04:56] LABS: EOSINOPHIL (%) 1.8 % (0-5); EOSINOPHIL COUNT 0.2 K/uL (0-0.3); IMMATURE GRANULOCYTE (%) 2.9 % (0.0-0.7); IMMATURE GRANULOCYTE COUNT 0.4 K/uL; INSTRUMENT ABS NEUTROPHIL CT 8.8 K/uL; LYMPHOCYTE COUNT 3.1 K/uL (1.0-2.8); MCH 29.5 PG (29.0-34.0); MCHC 32.8 G/DL (30.0-36.0); MCV 90.1 FL (86-99); MEAN PLAT.VOLUME 7.8 uM^3 (9.0-12.4); MONOCYTE (%) 6.1 % (3-12); MONOCYTE COUNT 0.8 K/uL (0-0.8); NEUTROPHIL (%) 65.7 % (45-76); NEUTROPHIL COUNT 8.8 K/uL (1.8-6.4); PLATELET COUNT 450 K/uL (156-360); RBC DIS.WIDTH-CV 13.4 % (11.8-14.6); RBC DIS.WIDTH-SD 44.8 % (39-53); RED BLOOD COUNT 3.22 M/uL (4.00-5.50); WHITE BLOOD COUNT 13.4 K/uL (4.1-10.2)
[2016-10-31 05:08] LABS: CHLORIDE 100 mEq/L (99-109); POTASSIUM 4.7 mEq/L (3.7-5.4); SODIUM 131 mEq/L (136-147)
[2016-10-31 05:10] LABS: GLUCOSE 96 mg/dL (70-99)
[2016-10-31 05:11] LABS: ANION GAP 7 MEQ/L (2-14)
[2016-10-31 05:14] LABS: GFR ESTIMATE (CALCULATED) > 59 mL/min/; UREA NITROGEN (BUN) 12 mg/dL (9-23)
[2016-11-01] VITALS (10 sets, daily range): BP systolic 91–106; BP diastolic 51–72
[2016-11-02 05:04] VITALS: BP 127/69
[2016-11-02 07:38] VITALS: BP 99/58
[2016-11-02 19:31] VITALS: BP 98/55
[2016-11-02 23:56] VITALS: BP 88/54
[2016-11-03 04:37] VITALS: BP 109/64
[2016-11-03 07:50] VITALS: BP 109/59
[2016-11-03 12:31] VITALS: BP 111/51
[2016-11-03 17:00] VITALS: BP 99/62
[2016-11-03 19:06] VITALS: BP 116/68
[2016-11-03 22:25] VITALS: BP 104/59
[2016-11-04 04:48] VITALS: BP 122/65
[2016-11-04 08:11] VITALS: BP 121/56
[2016-11-04] MEDS ORDERED: TYLENOL REGULA325 MG PO (11:39)
[2016-11-04] MEDS ORDERED: DOCUSATE SODIU100 MG PO (11:40)
[2016-11-04] MEDS ORDERED: MAG-AL PLUS SUS30 ML PO (11:41)
[2016-11-04] MEDS ORDERED: POLYETHYLENE GL17 GM PO (11:42)
[2016-11-04] MEDS ORDERED: ONDANSETRON ODT4 MG PO (11:42)
[2016-11-04] MEDS ORDERED: CREON DR 12,001 EAC1 PO (11:42)
[2016-11-04] MEDS ORDERED: LIDOCAINE1 EACH TD (11:43)
[2016-11-04] MEDS ORDERED: ENDOCET 5-3251 EACH PO (11:44)
== END 2016-11-04 13:17 | disposition home or self-care (01) | DRG 166 ==
LOC: EME 13:46 → 4WEST 18:19 → 3EAST 18:19 → EDOF 18:19 → 3EAST 20:48 → 4WEST 10-24 13:01 → ENRESERV 10-24 13:01 → 4WEST 10-24 13:01 → ENRESERV 10-25 13:56 → 4WEST 10-25 16:22 → 4EAST 10-25 16:29 → 4WEST 10-26 00:11 → ENRESERV 11-01 08:39 → 4EAST 11-01 09:55
PROVIDERS: Emergency Medicine; Family Medicine; Family Medicine Sports Medicine; Internal Medicine Critical Care Medicine; Internal Medicine Pulmonary Disease; Radiology Diagnostic Radiology; Thoracic Surgery (Cardiothoracic Vascular Surgery)
DX: J44.0 Chronic obstructive pulmonary disease with (acute) lower respiratory infection (principal); J18.9 Pneumonia, unspecified organism; J44.1 Chronic obstructive pulmonary disease with (acute) exacerbation; J96.21 Acute and chronic respiratory failure with hypoxia; K85.20 Alcohol induced acute pancreatitis without necrosis or infection; K86.1 Other chronic pancreatitis; J90 Pleural effusion, not elsewhere classified; J94.2 Hemothorax; J93.82 Other air leak; T79.7XXA Traumatic subcutaneous emphysema, initial encounter; E87.1 Hypo-osmolality and hyponatremia; K56.0 Paralytic ileus; K86.2 Cyst of pancreas; I27.2 Other secondary pulmonary hypertension; K57.30 Diverticulosis of large intestine without perforation or abscess without bleeding; D64.9 Anemia, unspecified; E78.5 Hyperlipidemia, unspecified; F17.200 Nicotine dependence, unspecified, uncomplicated; I10 Essential (primary) hypertension; F41.9 Anxiety disorder, unspecified; F32.9 Major depressive disorder, single episode, unspecified; K21.9 Gastro-esophageal reflux disease without esophagitis; Z68.1 Body mass index [BMI] 19.9 or less, adult; Z86.711 Personal history of pulmonary embolism; Z87.01 Personal history of pneumonia (recurrent); Z87.442 Personal history of urinary calculi; Z87.440 Personal history of urinary (tract) infections
CPT/HCPCS: 71010; 71020; 74022; 74176; 76942; 80048; 80053; 80076; 81003; 82150; 82436; 82945; 82948; 83615 91; 83690; 83935; 84133; 84157; 84300; 84484; 85025; 85027; 87070; 87075; 87116; 87205; 87206; 87641; 88108; 88305; 89051; 93005; 94010; 94640; 94640 76; 94760; 94799; 99202; 99281; 99284; G0480; J0690; J0692; J1100; J1644; J1650; J1885; J2250; J2405; J2550; J2710; J2930; J3010; J7050; J7120; J7512

== ENCOUNTER 2016-11-06 17:59 | Emergency (ER) | payer OTHER ==
[~2016-11-06] VITALS: Ht 180.3 cm; Wt 56.8 kg
[~2016-11-06 17:59] MED LIST changes: +ACAMPROSATE CA333 MG PO; +CREON DR 12,001 EAC1 PO; +DOCUSATE SODIU100 MG PO; +LEVOFLOXACIN750 MG PO; +LIDOCAINE1 EACH TD; +MAG-AL PLUS SUS30 ML PO; +POLYETHYLENE GL17 GM PO; +PREDNISONE10 MG PO
[2016-11-06 21:25] VITALS: BP 103/60
== END 2016-11-06 21:26 | disposition home or self-care (01) ==
LOC: EME 17:59
DX: T79.7XXA Traumatic subcutaneous emphysema, initial encounter (principal); Y83.8 Other surgical procedures as the cause of abnormal reaction of the patient, or of later complication, without mention of misadventure at the time of the procedure; J44.9 Chronic obstructive pulmonary disease, unspecified; Z87.01 Personal history of pneumonia (recurrent); Z86.711 Personal history of pulmonary embolism; F17.200 Nicotine dependence, unspecified, uncomplicated
CPT/HCPCS: 71010; 99281; 99285

== ENCOUNTER 2016-11-07 18:23 | Inpatient (IN) | payer OTHER ==
[~2016-11-07] VITALS: Ht 180.3 cm; Wt 54.1 kg
[2016-11-07 19:53] LABS: HEMATOCRIT 36.6 % (38.0-50.0); MCH 29.8 PG (29.0-34.0); MCHC 33.3 G/DL (30.0-36.0); MCV 89.5 FL (86-99); MEAN PLAT.VOLUME 8.2 uM^3 (9.0-12.4); PLATELET COUNT 663 K/uL (156-360); RBC DIS.WIDTH-CV 13.6 % (11.8-14.6); RBC DIS.WIDTH-SD 44.6 % (39-53); RED BLOOD COUNT 4.09 M/uL (4.00-5.50); WHITE BLOOD COUNT 18.9 K/uL (4.1-10.2)
[2016-11-07 19:56] LABS: CHLORIDE 98 mEq/L (99-109); POTASSIUM 4.6 mEq/L (3.7-5.4); SODIUM 129 mEq/L (136-147)
[2016-11-07 19:58] LABS: GLUCOSE 107 mg/dL (70-99)
[2016-11-07 19:59] LABS: ANION GAP 11 MEQ/L (2-14)
[2016-11-07 20:01] LABS: GFR ESTIMATE (CALCULATED) > 59 mL/min/
[2016-11-07 20:02] LABS: UREA NITROGEN (BUN) 15 mg/dL (9-23)
[2016-11-07 21:25] LABS: INTER. NORMALIZED RATIO 1.4
[2016-11-07 21:27] LABS: PTT 36.4 SEC (25-37)
[2016-11-07 21:36] LABS: TOTAL BILIRUBIN 0.5 mg/dL (0.0-1.0)
[2016-11-07 21:38] LABS: ALKALINE PHOSPHATASE 105 IU/L (3-129)
[2016-11-07 21:40] LABS: DIRECT BILIRUBIN 0.2 mg/dL (0.0-0.3)
[2016-11-07 21:41] LABS: LIPASE 450 U/L (1.0-51.0)
[2016-11-07 21:45] LABS: TROP-I INTERPRETATION NEGATIVE; TROPONIN-I < 0.01 ng/mL (0.0-0.30)
[2016-11-07 23:54] LABS: ADD MIUA? YES; BILIRUBIN NEGATIVE; BLOOD SMALL; COLOR AMBER ((YELLOW)); GLUCOSE (STRIP) NEGATIVE; KETONES 5; LEUKOCYTES MODERATE; NITRITE POSITIVE; PROTEIN (STRIP) 100; SPECIFIC GRAVITY 1.017 (1.000-1.030); UROBILINOGEN 0.2 MG/DL (0.2-1.0)
[2016-11-08 00:19] LABS: WHITE BLOOD CELLS TNTC /HPF (0-5)
[2016-11-08 00:20] LABS: BACTERIA 3+ /HPF; UCUL ADDED? YES
[2016-11-08 03:15] VITALS: BP 136/70
[2016-11-08 07:54] VITALS: BP 124/66
[2016-11-08 09:35] LABS: BASOPHIL COUNT 0.1 K/uL (0-0.1); EOSINOPHIL (%) 4.1 % (0-5); EOSINOPHIL COUNT 0.7 K/uL (0-0.3); HEMATOCRIT 34.6 % (38.0-50.0); IMMATURE GRANULOCYTE (%) 2.4 % (0.0-0.7); IMMATURE GRANULOCYTE COUNT 0.4 K/uL; INSTRUMENT ABS NEUTROPHIL CT 10.6 K/uL; LYMPHOCYTE COUNT 3.8 K/uL (1.0-2.8); MCH 30.6 PG (29.0-34.0); MCHC 32.9 G/DL (30.0-36.0); MCV 92.8 FL (86-99); MEAN PLAT.VOLUME 8.3 uM^3 (9.0-12.4); MONOCYTE (%) 6.2 % (3-12); NEUTROPHIL COUNT 10.6 K/uL (1.8-6.4); PLATELET COUNT 705 K/uL (156-360); RBC DIS.WIDTH-CV 13.8 % (11.8-14.6); RBC DIS.WIDTH-SD 47.2 % (39-53); RED BLOOD COUNT 3.73 M/uL (4.00-5.50); WHITE BLOOD COUNT 16.5 K/uL (4.1-10.2)
[2016-11-08 10:16] LABS: ANION GAP 13 MEQ/L (2-14); CHLORIDE 104 MEQ/L (99-109); GFR ESTIMATE (CALCULATED) > 59 mL/min/; GLUCOSE 89 mg/dL (70-99); POTASSIUM 4.5 MEQ/L (3.7-5.4); SAMPLE HEMOLYSIS CHECK 0; SAMPLE ICTERIC CHECK 0; SAMPLE LIPEMIA CHECK 0; SODIUM 135 MEQ/L (136-147); UREA NITROGEN (BUN) 13 mg/dL (9-23)
[2016-11-08 10:59] VITALS: BP 128/66
[2016-11-08 11:54] LABS: POINT-OF-CARE METER ID UU14188577
[2016-11-08 15:09] VITALS: BP 116/59
[2016-11-08 16:13] LABS: POINT-OF-CARE METER ID UU14188577
[2016-11-08 19:59] VITALS: BP 141/65
[2016-11-08 21:24] LABS: POINT-OF-CARE METER ID UU14188577
[2016-11-08 23:54] VITALS: BP 117/65
[2016-11-09 03:30] VITALS: BP 122/68
[2016-11-09 06:34] LABS: POINT-OF-CARE METER ID UU14117124
[2016-11-09 08:35] VITALS: BP 139/63
[2016-11-09 11:26] VITALS: BP 111/69
[2016-11-09 11:45] LABS: POINT-OF-CARE METER ID UU14188577
[2016-11-09 20:04] VITALS: BP 122/71
[2016-11-09 21:24] LABS: POINT-OF-CARE METER ID UU14188577
[2016-11-09 23:29] VITALS: BP 118/66
[2016-11-10 03:47] VITALS: BP 132/72
[2016-11-10 06:53] LABS: EOSINOPHIL (%) 6.7 % (0-5); EOSINOPHIL COUNT 0.7 K/uL (0-0.3); IMMATURE GRANULOCYTE (%) 1.3 % (0.0-0.7); IMMATURE GRANULOCYTE COUNT 0.1 K/uL; INSTRUMENT ABS NEUTROPHIL CT 6.7 K/uL; LYMPHOCYTE COUNT 2.4 K/uL (1.0-2.8); MCH 30.1 PG (29.0-34.0); MCHC 33.3 G/DL (30.0-36.0); MCV 90.4 FL (86-99); MEAN PLAT.VOLUME 8.4 uM^3 (9.0-12.4); MONOCYTE (%) 6.6 % (3-12); MONOCYTE COUNT 0.7 K/uL (0-0.8); NEUTROPHIL (%) 62.6 % (45-76); NEUTROPHIL COUNT 6.7 K/uL (1.8-6.4); PLATELET COUNT 530 K/uL (156-360); RBC DIS.WIDTH-CV 13.4 % (11.8-14.6); RBC DIS.WIDTH-SD 44.2 % (39-53); RED BLOOD COUNT 3.32 M/uL (4.00-5.50); WHITE BLOOD COUNT 10.7 K/uL (4.1-10.2)
[2016-11-10 07:25] LABS: ALKALINE PHOSPHATASE 68 IU/L (3-129); ANION GAP 11 MEQ/L (2-14); CHLORIDE 102 MEQ/L (99-109); GFR ESTIMATE (CALCULATED) > 59 mL/min/; GLUCOSE 94 mg/dL (70-99); POTASSIUM 3.9 MEQ/L (3.7-5.4); SAMPLE HEMOLYSIS CHECK 0; SAMPLE ICTERIC CHECK 0; SAMPLE LIPEMIA CHECK 0; SODIUM 134 MEQ/L (136-147); TOTAL BILIRUBIN 0.4 MG/DL (0.0-1.0); UREA NITROGEN (BUN) 8 mg/dL (9-23)
[2016-11-10 08:08] VITALS: BP 113/66
[2016-11-10 11:32] VITALS: BP 119/67
[2016-11-10 16:27] VITALS: BP 127/67
[2016-11-10 19:30] VITALS: BP 128/62
[2016-11-10 23:33] VITALS: BP 118/67
[2016-11-11 04:41] VITALS: BP 115/61
[2016-11-11 06:30] LABS: POINT-OF-CARE METER ID UU14208753
[2016-11-11 07:53] VITALS: BP 106/75
[2016-11-11 11:00] VITALS: BP 112/65
[2016-11-11 15:43] VITALS: BP 151/71
[2016-11-11 20:19] VITALS: BP 131/65
[2016-11-11 23:43] VITALS: BP 120/77
[2016-11-12 03:17] VITALS: BP 108/64
[2016-11-12 06:44] LABS: POINT-OF-CARE METER ID UU14208753
[2016-11-12 07:39] VITALS: BP 118/65
[2016-11-12 11:05] LABS: POINT-OF-CARE METER ID UU14208753
[2016-11-12 11:45] VITALS: BP 110/72
[2016-11-12 15:55] VITALS: BP 125/73
[2016-11-12 16:38] LABS: POINT-OF-CARE METER ID UU14208753
[2016-11-12 20:14] VITALS: BP 112/69
[2016-11-12 22:21] LABS: POINT-OF-CARE METER ID UU14208753
[2016-11-12 23:55] VITALS: BP 127/68
[2016-11-13 04:03] VITALS: BP 132/71
[2016-11-13 06:05] LABS: EOSINOPHIL (%) 4.5 % (0-5); EOSINOPHIL COUNT 0.5 K/uL (0-0.3); HEMATOCRIT 29.5 % (38.0-50.0); IMMATURE GRANULOCYTE (%) 1.6 % (0.0-0.7); IMMATURE GRANULOCYTE COUNT 0.2 K/uL; INSTRUMENT ABS NEUTROPHIL CT 6.8 K/uL; LYMPHOCYTE COUNT 1.8 K/uL (1.0-2.8); MCH 30.1 PG (29.0-34.0); MCHC 33.2 G/DL (30.0-36.0); MCV 90.5 FL (86-99); MEAN PLAT.VOLUME 8.5 uM^3 (9.0-12.4); MONOCYTE (%) 7.4 % (3-12); MONOCYTE COUNT 0.7 K/uL (0-0.8); NEUTROPHIL (%) 68.2 % (45-76); NEUTROPHIL COUNT 6.8 K/uL (1.8-6.4); PLATELET COUNT 527 K/uL (156-360); RBC DIS.WIDTH-CV 13.6 % (11.8-14.6); RBC DIS.WIDTH-SD 45.3 % (39-53); RED BLOOD COUNT 3.26 M/uL (4.00-5.50)
[2016-11-13 07:31] LABS: ANION GAP 13 MEQ/L (2-14); CHLORIDE 100 MEQ/L (99-109); GFR ESTIMATE (CALCULATED) > 59 mL/min/; GLUCOSE 78 mg/dL (70-99); POTASSIUM 4.1 MEQ/L (3.7-5.4); SAMPLE HEMOLYSIS CHECK 0; SAMPLE ICTERIC CHECK 0; SAMPLE LIPEMIA CHECK 0; SODIUM 132 MEQ/L (136-147); UREA NITROGEN (BUN) 8 mg/dL (9-23)
[2016-11-13 08:11] LABS: POINT-OF-CARE METER ID UU14117124
[2016-11-13 08:14] VITALS: BP 125/71
[2016-11-13 11:57] VITALS: BP 132/78
[2016-11-13 15:36] VITALS: BP 112/66
[2016-11-13 16:17] LABS: POINT-OF-CARE METER ID UU14117124
[2016-11-13 19:22] VITALS: BP 112/67
[2016-11-13 23:29] VITALS: BP 116/60
[2016-11-14 03:30] VITALS: BP 125/75
[2016-11-14 07:19] VITALS: BP 108/69
[2016-11-14 11:25] VITALS: BP 108/60
[2016-11-14 15:29] VITALS: BP 115/68
[2016-11-14 19:25] VITALS: BP 103/66
[2016-11-14 23:26] VITALS: BP 110/66
[2016-11-15 03:56] VITALS: BP 114/72
[2016-11-15 07:00] VITALS: BP 111/64
[2016-11-15 11:58] VITALS: BP 124/67
[2016-11-15 15:00] VITALS: BP 128/70
[2016-11-15] MEDS ORDERED: OYSTER SHELL 51 EACH PO (19:34)
[2016-11-15] MEDS ORDERED: TYLENOL REGULA325 MG PO (19:34)
[2016-11-15 19:53] VITALS: BP 115/72
[2016-11-15 23:50] VITALS: BP 133/84
[2016-11-16 04:08] VITALS: BP 130/77
[2016-11-16 08:00] VITALS: BP 112/64
[2016-11-16 11:29] VITALS: BP 130/66
== END 2016-11-16 14:41 | disposition home or self-care (01) | DRG 689 ==
LOC: EME 18:23 → EDOF 11-08 01:06 → 3EAST 11-08 01:06 → ENRESERV 11-08 01:11 → 3EAST 11-08 03:04
PROVIDERS: Emergency Medicine; Family Medicine Sports Medicine; Hospitalist; Physician Assistant Medical
DX: N39.0 Urinary tract infection, site not specified (principal); K85.20 Alcohol induced acute pancreatitis without necrosis or infection; J95.811 Postprocedural pneumothorax; J94.8 Other specified pleural conditions; Z68.1 Body mass index [BMI] 19.9 or less, adult; E44.1 Mild protein-calorie malnutrition; J94.2 Hemothorax; K86.0 Alcohol-induced chronic pancreatitis; J90 Pleural effusion, not elsewhere classified; K86.2 Cyst of pancreas; N32.1 Vesicointestinal fistula; J98.11 Atelectasis; E87.1 Hypo-osmolality and hyponatremia; F33.9 Major depressive disorder, recurrent, unspecified; N10 Acute pyelonephritis; K21.9 Gastro-esophageal reflux disease without esophagitis; R62.7 Adult failure to thrive; I27.2 Other secondary pulmonary hypertension; T81.82XA Emphysema (subcutaneous) resulting from a procedure, initial encounter; J44.9 Chronic obstructive pulmonary disease, unspecified; D75.89 Other specified diseases of blood and blood-forming organs; E78.5 Hyperlipidemia, unspecified; E87.6 Hypokalemia; F41.9 Anxiety disorder, unspecified; F17.210 Nicotine dependence, cigarettes, uncomplicated; I11.0 Hypertensive heart disease with heart failure; Z86.711 Personal history of pulmonary embolism; Z87.442 Personal history of urinary calculi; Z91.19 Patient's noncompliance with other medical treatment and regimen
CPT/HCPCS: 71020; 71250; 74176; 74177; 80048; 80053; 80076; 81003; 82948; 83605; 83690; 83880; 84484; 85025; 85027; 85610; 85730; 87077; 87086; 87186; 99281; 99285; J0692; J0696; J1650; J1815; J2250; J3010; J7030; J7050; J7120